=== PATIENT | male | born 1945 | race Caucasian/White ===

== ENCOUNTER 2018-02-22 11:21 | Outpatient (RCR) | payer MEDICARE, BC, SELFPAY | END 2018-03-08 23:59 | disposition home or self-care (01) | LOC: CR 11:21 | PROVIDERS: PCP Family Medicine; Visit Provider Family Medicine | DX: I25.2 Old myocardial infarction (principal); I25.10 Atherosclerotic heart disease of native coronary artery without angina pectoris; Z51.89 Encounter for other specified aftercare ==

== ENCOUNTER 2018-04-03 11:16 | Outpatient (RCR) | payer MEDICARE, BC, SELFPAY | END 2018-04-07 23:59 | disposition home or self-care (01) | LOC: CR 11:16 | PROVIDERS: PCP Family Medicine; Visit Provider Family Medicine | DX: I25.2 Old myocardial infarction (principal); I25.10 Atherosclerotic heart disease of native coronary artery without angina pectoris; Z51.89 Encounter for other specified aftercare | CPT/HCPCS: S9472 ==

== ENCOUNTER 2018-04-20 11:14 | Emergency (ER) | payer MEDICARE, BC, SELFPAY ==
[2018-04-20 11:17] VITALS: BP 123/60; PULSE 47; RESP 16; TEMP 37; O2SAT 99
--- NOTE | 2018-04-20 11:23 | W.ED.GENAD ---
Discharge Plan Disposition Patient Disposition: HOME Condition: Good Discharge Details Chief Complaint: Vascular Clinical Impression: Traumatic hematoma of left hand Primary Care Provider: Jon Ch ED Provider: Johnnie Khanna Home Meds and New Rx's Prescriptions: Continue hydrocortisone acetate [Anusol-HC] 25 MG suppository 25 mg RC BID Qty: 20 RF: 1 aspirin [Aspir-81] 81 MG tablet,delayed release (DR/EC) 1 tab PO DAILY RF: 0 clopidogrel [Plavix] 75 MG tablet 1 tab PO DAILY Qty: 90 RF: 4 atorvastatin 40 MG tablet 40 mg PO DAILY Qty: 90 RF: 4 blood-glucose meter [OneTouch Ultra2] 1 EACH kit 1 ea Miscellaneous DAILY Qty: 1 RF: 0 lisinopril 20 MG tablet 20 mg PO DAILY RF: 0 nitroglycerin [Nitrostat] 0.4 MG tablet, sublingual 1 tab Sublingual PRN Qty: 25 RF: 4 famotidine 20 MG tablet 20 mg PO DAILY Qty: 180 RF: 4 diltiazem HCl [Taztia XT] 120 MG capsule,extended release 24 hr 120 mg PO DAILY Qty: 90 RF: 3 blood sugar diagnostic [OneTouch Ultra Test] 1 EACH strip 1 strip Miscellaneous DAILY Qty: 100 RF: 3 sitagliptin [Januvia] 50 MG tablet 50 mg PO DAILY Qty: 30 RF: 2 isosorbide mononitrate 30 MG tablet extended release 24 hr 30 mg PO DAILY RF: 0 magnesium oxide 400 MG capsule 400 mg PO DAILY RF: 0 lancets [OneTouch Delica Lancets] 1 EACH misc 1 ea Miscellaneous BID Qty: 100 RF: 5 glipizide 10 MG tablet 10 mg PO BID Qty: 180 RF: 4 metformin 750 mg tablet extended release 24 hr 750 mg PO BID Qty: 180 RF: 3 Discharge Instructions Instructions: Contusion in Adults (ED) Discharge Data Discharge Physician: Johnnie Khanna Medical Decision Making patient on asa and plavix comes in with hematoma of left hand. He was setting up generators this AM and accidentally hit left posterior hand. Denies any pain or other injuries, had bruising and swelling so came here. Given lack of any pain even on palpation doubt fx and do not feel xray indicated. Advised to wrap it with dat bandage and should resolve in a few weeks. His Hr is in the 50's on my exam but sates this is chronic for him and is asymptomatic in terms of chest pain, sob, weakness or lightheadedness/dizziness so do not feel w/u for this indicated Differential Diagnosis hematoma, contusion HPI General Mode of arrival: ambulatory. Date/Time Provider Initiated Documentation: 04/20/18 11:22. Limitations to Documentation: no limitations. Information obtained by: patient. History of Present Illness 73 year old M presents to the emergency department with the chief complaint of left posterior hand bruising, described as mild and moderate, with intensity rated at 1. No relieving factors improve symptom(s), No exacerbating factors reported . Patient notes no other symptoms.. Patient did receive the following treatments prior to arrival, none Related Data Home Medications Medication Instructions Recorded Confirmed hydrocortisone acetate [Anusol-HC] 25 mg RC BID #20 supp 06/03/13 aspirin [Aspir-81] 1 tab PO DAILY 09/26/13 12/17/17 clopidogrel [Plavix] 1 tab PO DAILY #90 tab 12/18/13 atorvastatin 40 mg PO DAILY #90 tab-cap 01/15/14 blood-glucose meter [OneTouch #1 kit 08/25/14 Ultra2] lisinopril 20 mg PO DAILY 04/23/15 12/17/17 diltiazem HCl [Taztia XT] 120 mg PO DAILY #90 tab-cap 03/23/17 famotidine 20 mg PO DAILY #180 tab-cap 03/23/17 nitroglycerin [Nitrostat] 1 tab SUBLINGUAL PRN #25 tab 03/23/17 blood sugar diagnostic [OneTouch #100 strip 07/12/17 Ultra Test] sitagliptin [Januvia] 50 mg PO DAILY #30 tab-cap 08/01/17 isosorbide mononitrate 30 mg PO DAILY tab-cap 09/11/17 12/17/17 magnesium oxide 400 mg PO DAILY 11/16/17 12/17/17 lancets [OneTouch Delica Lancets] #100 ea 11/21/17 glipizide 10 mg PO BID #180 tab-cap 01/30/18 metformin ER 750 mg 750 mg PO BID #180 tab-cap 04/09/18 tablet,extended release 24 hr Previous Rx's Medication Instructions Recorded diltiazem HCl [Taztia XT] 120 mg PO DAILY #90 tab-cap 03/23/17 famotidine 20 mg PO DAILY #180 tab-cap 03/23/17 nitroglycerin [Nitrostat] 1 tab SUBLINGUAL PRN #25 tab 03/23/17 blood sugar diagnostic [OneTouch #100 strip 07/12/17 Ultra Test] sitagliptin [Januvia] 50 mg PO DAILY #30 tab-cap 08/01/17 lancets [OneTouch Delica Lancets] #100 ea 11/21/17 glipizide 10 mg PO BID #180 tab-cap 01/30/18 metformin ER 750 mg 750 mg PO BID #180 tab-cap 04/09/18 tablet,extended release 24 hr Allergies Allergy/AdvReac Type Severity Reaction Status Date / Time No Known Allergies Allergy Unverified 03/05/18 08:16 General Stated Complaint: Vascular HELIO: 5 Review of Systems Review of Systems All systems reviewed & are unremarkable except as noted in HPI and below Constitutional Denies chills, Denies fever(s) and Denies weakness ENT Denies change in voice Cardiovascular Denies chest pain and Denies dyspnea Respiratory Denies dyspnea Gastrointestinal Denies abdominal pain, Denies nausea and Denies vomiting Genitourinary Denies dysuria Musculoskeletal Denies joint swelling Integumentary/Breasts Denies rash Neurologic Denies weakness Psychiatric Denies depression Allergic/Immunologic Reports urticaria [facility] Medical History Anxiety 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 DM (diabetes mellitus screen) Essential hypertension Gout Heart murmur History of tobacco use Tic disorder Social History Smoking/Tobacco Use Status: Former Tobacco Use Surgical History Angioplasty (~2008) LEFT HEART CARDIAC CATH PROCEDURES Stent placement Exam Const General: no acute distress Orientation: alert HENMT Head: normal to inspection Ears: external ears normal General nose exam: external nose normal Mouth: moist mucous membranes Eyes General: appearance normal, both eyes and all related structures Neck Neck: normal visual inspection Resp Effort & Inspection: normal respiratory effort and able to speak in complete sentences Cardio Rate: regular rate Skin General skin exam: no rashes or lesions noted Neuro General: alert and oriented x3 Extrem General: full ROM and other (2cm hematoma of left posterior hand, no pain even on palpation, full rom of the hand and wrist) Psych Mental Status: mental status grossly normal Course Vital Signs Temperature 37.0 C 04/20/18 11:17 Pulse 47 L 04/20/18 11:17 Respiratory Rate 16 04/20/18 11:17 Blood Pressure 123/60 04/20/18 11:17 Pulse Oximetry 99 04/20/18 11:17 Temperature 37.0 C 04/20/18 11:17 Temperature Source Temporal Artery Scan 04/20/18 11:17 Pulse 47 L 04/20/18 11:17 Respiratory Rate 16 04/20/18 11:17 Respiratory Effort 04/20/18 11:20 Blood Pressure 123/60 04/20/18 11:17 Blood Pressure Position Sitting 04/20/18 11:17 Pulse Oximetry 99 04/20/18 11:17 Oxygen Delivery Method Room Air 04/20/18 11:17 Oxygen Flow Rate 0 04/20/18 11:17 Pain Level 0 04/20/18 11:19
== END 2018-04-20 11:42 | disposition home or self-care (01) ==
LOC: ER 11:41
PROVIDERS: Emergency Provider Emergency Medicine; PCP Family Medicine
DX: S60.222A Contusion of left hand, initial encounter (principal); W22.8XXA Striking against or struck by other objects, initial encounter; Z79.01 Long term (current) use of anticoagulants
CPT/HCPCS: 99283

== ENCOUNTER 2018-05-08 07:00 | Outpatient (RCR) | payer MEDICARE, BC, SELFPAY | END 2018-05-08 23:59 | disposition home or self-care (01) | LOC: CR 07:00 | PROVIDERS: PCP Family Medicine; Visit Provider Family Medicine | DX: I25.2 Old myocardial infarction (principal); I25.10 Atherosclerotic heart disease of native coronary artery without angina pectoris; Z51.89 Encounter for other specified aftercare | CPT/HCPCS: S9472 ==

== ENCOUNTER 2018-05-29 01:38 | Outpatient (CLI) | payer MEDICARE, BC, SELFPAY ==
[2018-05-29 08:22] LABS: Hemoglobin A1C 6.5 % (4.5-6.2)
== END 2018-05-29 01:58 ==
PROVIDERS: PCP Family Medicine; Visit Provider Family Medicine
DX: E11.9 Type 2 diabetes mellitus without complications (principal)
CPT/HCPCS: 36415; 83036

== ENCOUNTER 2018-06-03 14:22 | Outpatient (RCR) | payer MEDICARE, BC, SELFPAY | END 2018-06-07 23:59 | disposition home or self-care (01) | LOC: CR 14:22 | PROVIDERS: PCP Family Medicine; Visit Provider Family Medicine | DX: I25.2 Old myocardial infarction (principal); I25.10 Atherosclerotic heart disease of native coronary artery without angina pectoris; Z51.89 Encounter for other specified aftercare | CPT/HCPCS: S9472 ==

== ENCOUNTER 2018-06-21 14:42 | Outpatient (RCR) | payer MEDICARE, BC, SELFPAY | END 2018-07-08 23:59 | disposition home or self-care (01) | LOC: CR 14:42 | PROVIDERS: PCP Family Medicine; Visit Provider Family Medicine | DX: I25.2 Old myocardial infarction (principal); I25.10 Atherosclerotic heart disease of native coronary artery without angina pectoris; Z51.89 Encounter for other specified aftercare | CPT/HCPCS: S9472 ==

== ENCOUNTER 2018-08-05 11:38 | Outpatient (RCR) | payer SELFPAY ==
--- NOTE | 2018-07-26 11:36 | PR3E_ITS ---
73 year old male who graduated Cardiac Rehabilitation Phase 2 on 06/21/18 and decided to transition to the maintenance phase, 3 days per week. PMH: PCI/ stent 02/13/18, NSTEMI 09/21/17, CABG 04/16/13, unstable angina, PCI 08/21/08, PCI 01/11, PCI 2000, ASCVD, DM, HTN, HLD, Gout First day of exercise: 07/12/18: BP at rest 154/76, HR rest 84 bpm. Patient completed 30 minutes of exercise: NuStep 10 minutes, UBE 10 minutes, and treadmill 10 minutes. HR w/ exercise ranged 87-96 bpm. VALERIE RPE scores 10-11. Tolerated exercise regimen without any adverse signs or symptoms. No concerns at this time, will continue to progress as tolerated.
== END 2018-08-08 23:59 | disposition home or self-care (01) ==
LOC: CR 11:38
PROVIDERS: PCP Family Medicine; Visit Provider Family Medicine
DX: I25.2 Old myocardial infarction (principal); I25.10 Atherosclerotic heart disease of native coronary artery without angina pectoris; Z51.89 Encounter for other specified aftercare
CPT/HCPCS: S9472

== ENCOUNTER 2018-09-04 07:00 | Outpatient (RCR) | payer SELFPAY ==
--- NOTE | 2018-09-04 11:53 | PR3E_ITS ---
73 year old male who graduated Cardiac Rehabilitation Phase 2 s/p DESx1 02/13/18, then transitioned to the maintenance phase, 3 days per week on 07/12/18, and has now decided to stop the cardiac rehab maintenance phase after 2 months of regular attendance. Last day of exercise: 08/30/18: Resting HR 59, BP 154/85; NuStep 10 minutes and UBE 10 minutes; HR with exercise 74-78bpm, VALERIE RPE scores 11. Tolerated exercise regimen without any adverse signs or symptoms. Patient reports that he will continue exercise at home using treadmill, walking outdoors as weather improves and chores.
== END 2018-09-05 23:59 | disposition home or self-care (01) ==
LOC: CR 07:00
PROVIDERS: PCP Family Medicine; Visit Provider Family Medicine
DX: I25.2 Old myocardial infarction (principal); I25.10 Atherosclerotic heart disease of native coronary artery without angina pectoris; Z51.89 Encounter for other specified aftercare
CPT/HCPCS: S9472

== ENCOUNTER 2018-11-22 02:40 | Outpatient (CLI) | payer MEDICARE, BC, SELFPAY ==
[2018-11-22 10:59] LABS: CREATININE 1.02 mg/dL (0.70-1.30); Cholesterol 118 mg/dL (50-200); HDL Cholesterol 44 mg/dL (40-60); LDL CHOLESTEROL 62 mg/dL (<100); Magnesium 1.4 mg/dL (1.8-2.4); Triglyceride 60 mg/dL (30-150)
== END 2018-11-22 03:00 ==
PROVIDERS: PCP Family Medicine; Visit Provider Family Medicine
DX: E78.5 Hyperlipidemia, unspecified (principal); R79.0 Abnormal level of blood mineral; E11.9 Type 2 diabetes mellitus without complications
CPT/HCPCS: 36415; 80061; 83721; 82565; 83735; 84132

== ENCOUNTER 2018-12-09 08:40 | Outpatient (CLI) | payer MEDICARE, BC, SELFPAY ==
[2018-12-09 10:58] LABS: Hemoglobin A1C 7.2 % (4.5-6.2)
== END 2018-12-09 09:00 ==
PROVIDERS: PCP Family Medicine; Visit Provider Family Medicine
DX: E11.9 Type 2 diabetes mellitus without complications (principal)
CPT/HCPCS: 36415; 83036

== ENCOUNTER 2019-03-06 12:29 | Emergency (ER) | payer MEDICARE, BC, SELFPAY ==
[2019-03-06] VITALS (37 sets, daily range): BP systolic 102–128; BP diastolic 56–71; PULSE 43–63; RESP 7–29; TEMP 36.5; O2SAT 94–99
[2019-03-06 13:11] LABS: Abs Immature Grans 0.01 k/cumm (0.0-0.09); Absolute Basophil Count 0.01 k/cumm (0.0-0.2); Absolute Eosinophil Count 0.17 k/cumm (0.0-0.7); Absolute Lymphocyte Count 1.16 k/cumm (1.2-3.4); Absolute Monocyte Count 0.57 k/cumm (0.11-0.7); Absolute Neutrophil Count 4.49 k/cumm (1.2-6.7); Basophils % 0.2; Eosinophils % 2.7; HGB 12.3 g/dL (13.5-17.5); Immature Grans % 0.2; Lymphocytes % 18.1; Mean Corp. HGB Concentration 34.2 g/dL (32.0-36.0); Mean Corpuscular Hemoglobin 29.8 pg (27.0-33.0); Mean Corpuscular Volume 87.2 fL (80-95); Mean Platelet Volume 9.4 fL (8.0-11.0); Monocytes % 8.9; Neutrophils % 69.9; Platelet Count 269 x1000/uL (130-400); RBC 4.13 m/cumm (4.50-6.00); RBC Distribution Width 13.3 % (11.8-14.1); White Blood Cell Count 6.41 k/cumm (4.4-10.8)
--- NOTE | 2019-03-06 13:17 | DI.RAD_ITS ---
SYMPTOM/DIAGNOSIS: SUBSTERNAL CHEST PAIN PA AND LATERAL CHEST: Comparison is made with 11/05/16. Heart size and pulmonary vasculature are stable and within normal limits. There are sternal wires in place. There is blunting of the right costophrenic angle, likely reflecting scarring. No effusions, infiltrates or pneumothoraces are identified. The lungs appear slightly hyperinflated suggesting underlying COPD. IMPRESSION: No acute pulmonary process.
[2019-03-06 13:34] LABS: ALT 31 U/L (16-63); AST 15 U/L (15-37); Albumin 3.7 g/dL (3.4-5.0); Alkaline Phosphatase 76 U/L (46-116); Anion Gap 9.5 mmol/L (3-11); BUN 20 mg/dL (7-18); Bilirubin, Total 0.4 mg/dL (0.2-1.0); CO2 25.5 mmol/L (21.0-32.0); CREATININE 1.13 mg/dL (0.70-1.30); Calcium 8.9 mg/dL (8.5-10.1); Chloride 102 mmol/L (98-107); Glucose 162 mg/dL (70-100); Magnesium 1.6 mg/dL (1.8-2.4); Potassium 4.7 mmol/L (3.5-5.1); Sodium 137 mmol/L (136-145); Total Protein 7.3 g/dL (6.4-8.2); Troponin I 0.05 ng/mL (0.00-0.06)
--- NOTE | 2019-03-06 15:44 | W.ED.GENAD ---
Discharge Plan Disposition Patient Disposition: HOME Condition: Stable Discharge Details Chief Complaint: Chest Pain Clinical Impression: Angina of effort Primary Care Provider: Jon Ch ED Provider: Jeremy Rodriguez Home Meds and New Rx's Prescriptions: Continued Judy 128 2 % drops 1 drp ophthalmic (eye) QID RF: 0 (DME) FastDueTouch Ultra Test strip 1 strip Miscellaneous DAILY Qty: 100 RF: 3 Januvia 50 mg tablet 50 mg PO DAILY Qty: 30 RF: 2 magnesium oxide 400 mg capsule 400 mg PO BID RF: 0 isosorbide mononitrate 30 mg tablet extended release 24 hr 60 mg PO DAILY RF: 0 triamcinolone acetonide 0.1 % cream 1 applic TP BID RF: 0 aspirin [Aspir-81] 81 MG tablet,delayed release (DR/EC) 1 tab PO DAILY RF: 0 clopidogrel [Plavix] 75 MG tablet 1 tab PO DAILY Qty: 90 RF: 4 atorvastatin 40 MG tablet 40 mg PO DAILY Qty: 90 RF: 4 (DME) blood-glucose meter [Stratus5uch Ultra2 Meter] 1 EACH kit 1 ea Miscellaneous DAILY Qty: 1 RF: 0 lisinopril 20 MG tablet 20 mg PO DAILY RF: 0 famotidine 20 MG tablet 20 mg PO DAILY Qty: 180 RF: 4 diltiazem HCl [Taztia XT] 120 MG capsule,extended release 24 hr 120 mg PO DAILY Qty: 90 RF: 3 (DME) lancets [FastDueTouch Delica Lancets] 1 EACH misc 1 ea Miscellaneous BID Qty: 100 RF: 5 metformin 750 mg tablet extended release 24 hr 750 mg PO BID Qty: 180 RF: 3 nitroglycerin [Nitrostat] 0.4 mg tablet, sublingual 0.4 mg Sublingual PRN MDD 3 tabs Qty: 25 RF: 1 glipizide 10 mg tablet 5 mg PO BID Qty: 180 RF: 4 Discharge Instructions Instructions: Angina (ED) Additional Instructions: Your cardiology office will call you tomorrow for an appointment for close follow-up. For now, do not do any strenuous exertion, you may take 120 mg of your isosorbide daily as long as your blood pressure is greater than 120 systolic (top number). If you take this much and you feel lightheaded or dizzy, he will need to decrease her dose back to 60 mg. If your symptoms return at rest, meaning you are not walking or doing any heavy exertion and you are getting chest pain, you will need to come right back to the emergency department. If you develop any shortness of breath, or additional symptoms you should return promptly to the ED. Medical Decision Making Chest x-ray unremarkable. No acute EKG changes. Troponins are negative x2. [facility] was consulted, Muriel Carvajal contacted his bending machine operator, reviewed EKGs, and is setting up outpatient follow-up this week for patient. Recommend increasing nitro to 120 mg assuming blood pressures can tolerate it. Patient is agreeable to this as he states he is unwilling to be admitted regardless. He will return if any pain progresses, specifically any pain at rest or any pain with minimal exertion. He is able to ambulate across the parking lot, and out of his bathroom here without chest pain or symptoms. He understands severity of his disease and that he will need very close follow-up. STEPHANY Bryant is a 73-year-old male with past medical history significant for hypertension, coronary artery disease, CABG, multiple cardiac stents most recently 1 year ago. He presents today for evaluation of substernal chest pain with exertion, specifically when he walks in his driveway and then returns. Resolves when he takes nitro and sits down. He has had similar symptoms in the past multiple times leading up to his stents. Most recent stent was one year ago. 6 months ago he started having chest pain and his bending machine operator Dr. Banerjee at [facility] increase his dose of nitro. This was successful up until 2 weeks ago when he started having this current chest pain. It is not worse in the past 2 weeks. He does not have pain at rest. He does not associated symptoms with it. General Date/Time Provider Initiated Documentation: 03/06/19 12:46. Related Data Home Medications Medication Instructions Recorded Confirmed aspirin [Aspir-81] 1 tab PO DAILY 09/26/13 03/06/19 clopidogrel [Plavix] 1 tab PO DAILY #90 tab 12/18/13 03/06/19 atorvastatin 40 mg PO DAILY #90 tab-cap 01/15/14 03/06/19 blood-glucose meter [OneTouch #1 kit 08/25/14 11/28/18 Ultra2 Meter] lisinopril 20 mg PO DAILY 04/23/15 03/06/19 diltiazem HCl [Taztia XT] 120 mg PO DAILY #90 tab-cap 03/23/17 03/06/19 famotidine 20 mg PO DAILY #180 tab-cap 03/23/17 03/06/19 lancets [OneTouch Delica Lancets] #100 ea 11/21/17 11/28/18 metformin 750 mg tablet,extended 750 mg PO BID #180 tab-cap 04/09/18 03/06/19 release 24 hr sodium chloride 2 % eye drops 1 drp OPHTHALMIC (EYE) QID ml 05/15/18 03/06/19 nitroglycerin 0.4 mg sublingual 0.4 mg SUBLINGUAL PRN #25 tab MDD 06/25/18 03/06/19 tablet 3 tabs blood sugar diagnostic #100 strip 08/27/18 11/28/18 sitagliptin 50 mg tablet 50 mg PO DAILY #30 tab-cap 08/27/18 03/06/19 triamcinolone acetonide 0.1 % 1 applic TP BID gm 10/18/18 03/06/19 topical cream glipizide 10 mg tablet 5 mg PO BID #180 tab-cap 10/25/18 03/06/19 isosorbide mononitrate 30 mg 60 mg PO DAILY tab-cap 11/28/18 03/06/19 tablet,extended release 24 hr magnesium oxide 400 mg PO BID cap 11/28/18 03/06/19 Previous Rx's Medication Instructions Recorded diltiazem HCl [Taztia XT] 120 mg PO DAILY #90 tab-cap 03/23/17 famotidine 20 mg PO DAILY #180 tab-cap 03/23/17 lancets [OneTouch Delica Lancets] #100 ea 11/21/17 metformin 750 mg tablet,extended 750 mg PO BID #180 tab-cap 04/09/18 release 24 hr nitroglycerin 0.4 mg sublingual 0.4 mg SUBLINGUAL PRN #25 tab MDD 06/25/18 tablet 3 tabs blood sugar diagnostic #100 strip 08/27/18 sitagliptin 50 mg tablet 50 mg PO DAILY #30 tab-cap 08/27/18 glipizide 10 mg tablet 5 mg PO BID #180 tab-cap 10/25/18 Allergies Allergy/AdvReac Type Severity Reaction Status Date / Time No Known Allergies Allergy Unverified 08/29/19 12:39 General Stated Complaint: Chest Pain HELIO: 2 Review of Systems Constitutional Denies chills, Denies fatigue, Denies fever(s) and Denies lethargy Eyes Denies loss of vision ENT Denies nasal congestion and Denies sore throat Cardiovascular Denies dyspnea Respiratory Denies cough and Denies dyspnea Gastrointestinal Denies abdominal pain, Denies nausea and Denies vomiting Musculoskeletal Denies back pain, Denies muscle weakness and Denies numbness Integumentary/Breasts Denies rash Neurologic Denies focal weakness, Denies loss of vision and Denies numbness Endocrine Denies fatigue Hematologic/Lymphatic Denies easy bruising [facility] Surgical History (Updated 11/28/18 @ 05:46 by Kenrick Spaulding) Angioplasty (~2008) LAD LEFT HEART CARDIAC CATH LEFT HEART CARDIAC CATH, 1993 >40% LAD RT/LEFT HEART CARD CATH, 2000 RCA stent placed LEFT HEART CARDIAC CATH, 2001 PROCEDURES 2 vessel coronary artery bypass 2013 Stent placement 2000-VASCULAR/RCA 09/21/17-[facility] MID RCA (DISTAL EDGE OF PREVIOUS STENT) 02/2018- [facility] STENT MID RCA Social History Smoking/Tobacco Use Status: Former Tobacco Use Drug use: Never Do you feel safe in your relationship?: Yes Exam Const General: cooperative, healthy appearing and no acute distress [facility] Head: normal to inspection Ears: hearing grossly normal bilaterally Eyes EOM: EOM intact bilaterally Neck Neck: normal visual inspection Resp Effort & Inspection: normal respiratory effort Auscultation: clear to auscultation bilaterally Cardio Rate: regular rate Rhythm: regular rhythm Heart Sounds: no murmurs GI Palpation: soft and nontender Skin General skin exam: no rashes or lesions noted Neuro General: alert, awake and oriented x3 Speech: speech normal Gait: normal gait Extrem General: normal to inspection Course Vital Signs Temperature 36.5 C 03/06/19 12:36 Pulse 50 L 03/06/19 12:36 Respiratory Rate 16 03/06/19 12:36 Blood Pressure 122/60 03/06/19 12:36 Pulse Oximetry 99 03/06/19 12:36 Temperature 36.5 C 03/06/19 12:36 Temperature Source Skin 03/06/19 12:36 Pulse 48 L 03/06/19 14:00 Pulse 47 L 03/06/19 14:10 Respiratory Rate 13 03/06/19 14:10 Respiratory Effort Non-Labored 03/06/19 12:54 Respiratory Depth Normal 03/06/19 12:54 Respiratory Pattern Normal 03/06/19 12:54 Blood Pressure 111/56 L 03/06/19 14:00 Blood Pressure Mean 70 03/06/19 14:00 Blood Pressure Position Sitting 03/06/19 12:36 Pulse Oximetry 97 03/06/19 14:10 Oxygen Delivery Method Room Air 03/06/19 12:36 Oxygen Flow Rate 0 03/06/19 12:36 Pain Level 5 03/06/19 12:36 Lab/Test Results Lab/Test Results: Laboratory Tests Range/Units 03/06/19 03/06/19 12:50 12:50 WBC (4.4-10.8) k/cumm 6.41 RBC (4.50-6.00) m/cumm 4.13 L Hgb (13.5-17.5) g/dL 12.3 L Hct (40.0-50.0) % 36.0 L MCV (80-95) fL 87.2 MCH (27.0-33.0) pg 29.8 MCHC (32.0-36.0) g/dL 34.2 RDW (11.8-14.1) % 13.3 Plt Count (130-400) x1000/uL 269 MPV (8.0-11.0) fL 9.4 Immature Gran % 0.2 Neutrophils % 69.9 Lymphocytes % 18.1 Monocytes % 8.9 Eosinophils % 2.7 Basophils % 0.2 Absolute Neutrophils (1.2-6.7) k/cumm 4.49 Absolute Lymphocytes (1.2-3.4) k/cumm 1.16 L Absolute Monocytes (0.11-0.7) k/cumm 0.57 Absolute Eosinophils (0.0-0.7) k/cumm 0.17 Absolute Basophils (0.0-0.2) k/cumm 0.01 Sodium (136-145) mmol/L 137 Potassium (3.5-5.1) mmol/L 4.7 Chloride (98-107) mmol/L 102 Carbon Dioxide (21.0-32.0) mmol/L 25.5 Anion Gap (3-11) mmol/L 9.5 BUN (7-18) mg/dL 20 H Creatinine (0.70-1.30) mg/dL 1.13 Estimated GFR/1.73 m2 (mL/min/1.73m2) >= 60.00 Glucose (70-100) mg/dL 162 H Calcium (8.5-10.1) mg/dL 8.9 Magnesium (1.8-2.4) mg/dL 1.6 L Total Bilirubin (0.2-1.0) mg/dL 0.4 AST (15-37) U/L 15 ALT (16-63) U/L 31 Alkaline Phosphatase (46-116) U/L 76 Troponin I (0.00-0.06) ng/mL 0.05 Total Protein (6.4-8.2) g/dL 7.3 Albumin (3.4-5.0) g/dL 3.7
[2019-03-06 16:22] LABS: Troponin I < 0.05 ng/mL (0.00-0.06)
== END 2019-03-06 16:53 | disposition home or self-care (01) ==
PROVIDERS: Emergency Provider Physician Assistant Medical; PCP Family Medicine
DX: I25.118 Atherosclerotic heart disease of native coronary artery with other forms of angina pectoris (principal); I10 Essential (primary) hypertension; Z95.5 Presence of coronary angioplasty implant and graft; E11.9 Type 2 diabetes mellitus without complications; Z95.1 Presence of aortocoronary bypass graft; Z79.84 Long term (current) use of oral hypoglycemic drugs
CPT/HCPCS: 36415; 80053; 93005; 99285; 71046; 83735; 84484; 85025; 93010

== ENCOUNTER 2019-05-30 12:26 | Outpatient (REF) | payer MEDICARE, BC, SELFPAY ==
[2019-05-30 14:11] LABS: Bilirubin Negative (Negative); Blood Trace-intact (Negative); Clarity Clear (Clear); Glucose 250 mg/dL (Negative); Ketones Negative (Negative); Leukocyte Esterase Trace (Negative); Nitrite Negative (Negative); Specific Gravity <= 1.005 (1.005-1.025); Urobilinogen 0.2 EU/dL (Up TO 0.2)
[2019-05-30 14:20] LABS: Bacteria Few HPF (Negative); Crystals Negative HPF (Negative); Epithelial Cells Rare HPF (Negative); Mucus Negative (Negative); RBC 0-2 HPF (0-2)
[2019-05-30 14:21] LABS: C & S Indicated? C&S Done As Ordered; Casts Negative LPF (Negative)
== END 2019-05-30 12:46 ==
LOC: LBN 12:26
PROVIDERS: PCP Family Medicine; Visit Provider Emergency Medicine
DX: N39.0 Urinary tract infection, site not specified (principal); M54.5 Low back pain
CPT/HCPCS: 87077; 81003; 81015; 87086

== ENCOUNTER 2019-07-29 09:20 | Outpatient (REF) | payer MEDICARE, BC, SELFPAY | END 2019-07-29 09:40 | LOC: LBN 09:20 | PROVIDERS: PCP Family Medicine; Visit Provider Family Medicine | DX: R30.0 Dysuria (principal) | CPT/HCPCS: 87077; 87086; 87186 ==

== ENCOUNTER 2019-07-31 09:38 | Outpatient (RCR) | payer MEDICARE, BC, SELFPAY | END 2019-08-08 23:59 | disposition home or self-care (01) | LOC: CR 09:38 | PROVIDERS: PCP Family Medicine; Visit Provider Family Medicine | DX: I20.0 Unstable angina (principal); Z98.61 Coronary angioplasty status; Z51.89 Encounter for other specified aftercare ==

== ENCOUNTER 2019-09-05 13:41 | Outpatient (RCR) | payer MEDICARE, BC, SELFPAY | END 2019-09-06 23:59 | disposition home or self-care (01) | LOC: CR 13:41 | PROVIDERS: PCP Family Medicine; Visit Provider Family Medicine | DX: Z95.5 Presence of coronary angioplasty implant and graft (principal); I20.0 Unstable angina; Z51.89 Encounter for other specified aftercare | CPT/HCPCS: S9472 ==

== ENCOUNTER 2019-09-15 08:00 | Outpatient (RCR) | payer MEDICARE, BC, SELFPAY | END 2019-10-07 23:59 | disposition home or self-care (01) | LOC: CR 08:00 | PROVIDERS: PCP Family Medicine; Visit Provider Family Medicine | DX: Z95.5 Presence of coronary angioplasty implant and graft (principal); I20.0 Unstable angina; Z51.89 Encounter for other specified aftercare | CPT/HCPCS: S9472 ==

== ENCOUNTER 2020-10-21 02:57 | Outpatient (CLI) | payer MEDICARE, BC, SELFPAY ==
[2020-10-21 12:22] LABS: Abs Immature Grans 0.02 10^3/uL (0.0-0.06); Absolute Basophil Count 0.04 10^3/uL (0.0-0.2); Absolute Eosinophil Count 0.36 10^3/uL (0.0-0.7); Absolute Lymphocyte Count 1.31 10^3/uL (1.2-3.4); Absolute Monocyte Count 0.62 10^3/uL (0.1-0.8); Absolute Neutrophil Count 3.97 10^3/uL (1.2-6.7); Basophils % 0.6; Eosinophils % 5.7; HCT 31.9 % (40.0-50.0); HGB 9.2 g/dL (13.5-17.5); Immature Grans % 0.3; Lymphocytes % 20.7; MCH 22.2 pg (27.0-33.0); MCHC 28.8 % (32.0-36.0); MCV 77.1 fL (80-95); MPV 10.1 fL (8.0-11.0); Monocytes % 9.8; Neutrophils % 62.9; Nucleated RBC 0 %; Platelet Count 288 10^3/uL (130-400); RBC 4.14 10^6/uL (4.36-5.78); RDW 16.3 % (11.8-14.1); RDW-SD 45.3 fL; WBC 6.32 10^3/uL (4.4-10.8)
[2020-10-21 12:37] LABS: Anion Gap 10.2 mmol/L (3-11); BUN 22 mg/dL (7-18); CO2 25.8 mmol/L (21.0-32.0); CREATININE 1.1 mg/dL (0.70-1.30); Calcium 9.8 mg/dL (8.5-10.1); Chloride 103 mmol/L (98-107); Glucose 197 mg/dL (74-106); Potassium 4.6 mmol/L (3.5-5.1); Sodium 139 mmol/L (136-145)
[2020-10-21 12:38] LABS: Hemoglobin A1C 7.4 % (<5.7)
[2020-10-22 16:08] LABS: Iron 31 ug/dL (65-175); Total Iron Binding Capacity 381 ug/dL (250-450); Transferrin Sat 8 % (20-55)
[2020-10-22 16:35] LABS: Ferritin 7 ng/mL (26-388); Vitamin B12 237 pg/mL (193-986)
== END 2020-10-21 02:58 | disposition home or self-care (01) ==
LOC: LOS 02:57
PROVIDERS: PCP Family Medicine; Visit Provider Family Medicine
DX: E87.1 Hypo-osmolality and hyponatremia (principal); R73.9 Hyperglycemia, unspecified; I25.10 Atherosclerotic heart disease of native coronary artery without angina pectoris; D64.9 Anemia, unspecified
CPT/HCPCS: 36415; 80048; 82607; 82728; 83036; 83540; 83550; 85025

== ENCOUNTER 2020-12-07 14:08 | Outpatient (RCR) | payer MEDICARE, BC, SELFPAY | END 2021-01-05 23:59 | disposition home or self-care (01) | LOC: CR 14:08 | PROVIDERS: PCP Family Medicine; Visit Provider Family Medicine ==

== ENCOUNTER 2020-12-16 13:19 | Outpatient (RCR) | payer MEDICARE, BC, SELFPAY | END 2021-01-05 23:59 | disposition home or self-care (01) | LOC: CR 13:19 | PROVIDERS: PCP Family Medicine; Visit Provider Family Medicine ==

== ENCOUNTER 2021-02-03 04:26 | Outpatient (CLI) | payer MEDICARE, BC, SELFPAY ==
[2021-02-03 09:41] LABS: HCT 36.5 % (40.0-50.0); HGB 12.5 g/dL (13.5-17.5); MCH 28.6 pg (27.0-33.0); MCHC 34.2 % (32.0-36.0); MCV 83.5 fL (80-95); MPV 9.4 fL (8.0-11.0); Platelet Count 252 10^3/uL (130-400); RBC 4.37 10^6/uL (4.36-5.78); RDW 15.6 % (11.8-14.1); RDW-SD 47.2 fL; WBC 6.89 10^3/uL (4.4-10.8)
[2021-02-03 09:53] LABS: Hemoglobin A1C 7.7 % (<5.7)
[2021-02-03 10:25] LABS: Iron 74 ug/dL (65-175); Total Iron Binding Capacity 321 ug/dL (250-450); Transferrin Sat 23 % (20-55)
[2021-02-03 10:43] LABS: Ferritin 25 ng/mL (26-388)
== END 2021-02-03 04:27 | disposition home or self-care (01) ==
LOC: LBO 04:26
PROVIDERS: PCP Family Medicine; Visit Provider Family Medicine
DX: D64.9 Anemia, unspecified (principal); R53.83 Other fatigue; R73.9 Hyperglycemia, unspecified
CPT/HCPCS: 36415; 85027; 82728; 83036; 83540; 83550

== ENCOUNTER 2021-04-18 01:01 | Outpatient (CLI) | payer MEDICARE, BC, SELFPAY ==
--- NOTE | 2021-04-18 08:13 | DI.RAD_ITS ---
Exam(s) XR CERVICAL SPINE COMP 4-5V EXAM: XR CERVICAL SPINE COMP 4-5V CLINICAL HISTORY: neck pain/dizziness/headache,R42,M54.2 TECHNIQUE: COMPARISON: CR CERV SP.WITH OBL OR FLEX/EXT from 05/30/2011 FINDINGS: Eight views were obtained. Prevertebral soft tissues appear intact. Calcifications are noted in the posterior longitudinal ligament. The intervertebral disc spaces appear well maintained. There are mild hypertrophic degenerative leon ges involving articular facets and vertebral endplates. No other significant bony abnormality seen. Neural foramina appear well maintained on oblique views. IMPRESSION: Mild degenerative changes of the cervical spine as described above. RADIATION DOSE DELIVERED: Total DLP
== END 2021-04-18 01:21 ==
PROVIDERS: PCP Family Medicine; Visit Provider Family Medicine
DX: M54.2 Cervicalgia (principal); R42 Dizziness and giddiness; M50.30 Other cervical disc degeneration, unspecified cervical region
CPT/HCPCS: 72050

== ENCOUNTER 2021-08-29 14:24 | Inpatient (IN) | payer MEDICARE, BC, SELFPAY ==
[2021-08-29] VITALS (27 sets, daily range): BP systolic 116–156; BP diastolic 42–111; PULSE 56–97; RESP 13–23; TEMP 36.1–36.6; O2SAT 96–100
--- NOTE | 2021-08-29 14:15 | RT.EKG_ITS ---
APPROVED REPORT Exam: Resting ECG Reason for Exam: chest pain Patient Location: E HR:86 bpm ECG Measurements Heart Rate 86 AXIS MT 171 P 48 QRSd 138 QRS -14 QT 385 T 58 QTc 461 Conclusion Sinus rhythm...normal P axis, V-rate 60- 99 Probable left atrial enlargement...P >50mS, <-0.10mV V1 Right bundle branch block...QRSd>120, terminal axis(90,270) sinus rhythm, rbb, non ischemic
--- NOTE | 2021-08-29 14:40 | W.ED.GENAD ---
Discharge Plan Disposition Patient Disposition: STILL A PATIENT Condition: Improving Discharge Details Admit Date/Time: 08/29/21 19:10 Admit Provider: Gallo Willard Attending Provider: Gallo Willard Primary Care Provider: Jon Ch ED Provider: Megan Pelletier Discharge Data Discharge Date/Time-TO BE ENTERED AT DEPARTURE: 08/29/21 19:53 Medical Decision Making <FRANKO Power - Last Filed: 08/30/21 08:17> This is a 76-year-old gentleman, extensive cardiac history, presenting to the ER stating he simply does not feel well, this started yesterday and again today. He reports mild dyspnea with exertion and generalized weakness but denies any chest pain whatsoever. Clinically he appears well, nontoxic and hemodynamically stable. Plan is to give a single dose of aspirin and initiate a cardiac work-up including D-dimer Laboratory values reveal hemoglobin of 9.1 hematocrit 27.1, patient does have known anemia and this is near his baseline. Again he denies dark tarry stools or bright red blood in his stools. Coags are unremarkable, D-dimer is unremarkable at 436, will not pursue CTA of the chest. Electrolytes are normal, creatinine of 1.3 with a GFR of 53.82. His magnesium is 1.6. Will replenish with 1 g IV. His initial troponin is 77. BNP of 145. Urinalysis reveals glucose otherwise unremarkable. Covid negative. Chest x-ray unremarkable. Patient denies any chest pain. There are no ischemic changes on his EKG. Troponin of 77. Given his extensive cardiac history, vague presentation, likely dyspnea with exertion earlier today is a chest pain equivalent. Plan to obtain a repeat troponin to assess if this is trending upward and likely a consultation with cardiology. Either way I do not believe that he should be dispositioned home but the question is whether he requires transfer to [facility] for intervention with cardiology where he is followed or can be safely watched here at our facility. Patient CARE signed out to my colleague FRANKO Pelletier at [id number]. Patient is currently asymptomatic and hemodynamically stable. Awaiting delta troponin, likely cardiology consultation, and disposition. Repeat troponin down trending at 70. Patient remains asymptomatic. Discussed with patient. Consulted with Dr. Levi with [facility] cardiology. He reviewed recent cath note from 6 months ago. He advised that it showed patent graphs but multiple blockages. Reviewed remaining labs. He advised that would not cath the patient at this time. Advised monitoring for now. Advised echo while here. He advised echo from 1yr ago showed EF 55%, no wall motion abnormality. Known prosthetic valve. Medical Records Medical records reviewed: Yes I reviewed the patient's medical records. Imaging Data Radiologic Study: Attestation: I personally reviewed and interpreted this imaging study as follows: Imaging: X-Ray Radiologist's impression: Exam(s) XR CHEST 2V PA LATERAL EXAM: XR CHEST 2V PA LATERAL CLINICAL HISTORY: chest pain. TECHNIQUE: 2D digital imaging was performed. COMPARISON: CR from 03/06/2019 FINDINGS: There has been interval further surgery. Repeat sternotomy and there is now a prosthetic aortic valve in place. Coronary artery stents in left side of the heart are again noted. Heart size is normal. The mediastinum is not widened. Lungs are clear. No infiltrates nor pleural effusions. No pulmonary edema. No pneumothorax IMPRESSION: No acute pulmonary findings. Sternotomy. Prosthetic aortic valve. Coronary artery stents Lab Data Lab results reviewed: Yes I reviewed the patient's lab results. Labs: Laboratory Tests Range/Units 08/29/21 08/29/21 08/29/21 14:45 14:45 14:45 WBC (4.4-10.8) 10^3/uL 8.09 RBC (4.36-5.78) 10^6/uL 2.98 L Hgb (13.5-17.5) g/dL 9.1 L Hct (40.0-50.0) % 27.1 L MCV (80-95) fL 90.9 MCH (27.0-33.0) pg 30.5 MCHC (32.0-36.0) % 33.6 RDW (11.8-14.1) % 13.4 Plt Count (130-400) 10^3/uL 279 MPV (8.0-11.0) fL 9.6 Immature Gran % 0.4 Neutrophils % 78.5 Lymphocytes % 12.4 Monocytes % 7.5 Eosinophils % 1.0 Basophils % 0.2 Nucleated RBC % % 0 Absolute Neutrophils (1.2-6.7) 10^3/uL 6.35 Absolute Lymphocytes (1.2-3.4) 10^3/uL 1.00 L Absolute Monocytes (0.1-0.8) 10^3/uL 0.61 Absolute Eosinophils (0.0-0.7) 10^3/uL 0.08 Absolute Basophils (0.0-0.2) 10^3/uL 0.02 PT (9.3-11.0) sec 9.8 INR (0.9-1.1) 1.0 APTT (21.0-27.5) sec 21.7 D-Dimer (<500) ng/mlFEU 436 Sodium (136-145) mmol/L 137 Potassium (3.5-5.1) mmol/L 4.5 Chloride (98-107) mmol/L 102 Carbon Dioxide (21.0-32.0) mmol/L 22.8 Anion Gap (3-11) mmol/L 12.2 H BUN (7-18) mg/dL 33 H Creatinine (0.70-1.30) mg/dL 1.3 Estimated GFR/1.73 m2 (mL/min/1.73m2) 53.82 Glucose (74-106) mg/dL 275 H Calcium (8.5-10.1) mg/dL 9.2 Magnesium (1.8-2.4) mg/dL 1.6 L Total Bilirubin (0.2-1.0) mg/dL 0.4 AST (15-37) U/L 14 L ALT (16-63) U/L 26 Alkaline Phosphatase (46-116) U/L 81 Troponin I (<or=60) ng/L 77 H* NT-Pro-B Natriuret Pep (<300) pg/mL 145 Total Protein (6.4-8.2) g/dL 7.2 Albumin (3.4-5.0) g/dL 3.9 Urine Color (Yellow) Urine Clarity (Clear) Urine pH (5-8) Ur Specific [place] (1.005-1.025) Urine Protein (Negative) mg/dL Urine Ketones (Negative) mg/dL Urine Blood (Negative) Urine Nitrite (Negative) Urine Bilirubin (Negative) Urine Urobilinogen (Up TO 0.2) EU/dL Ur Leukocyte Esterase (Negative) Urine Glucose (Negative) mg/dL COVID-19 Source SARS-CoV-2 (PCR) (Negative) Range/Units 08/29/21 08/29/21 14:57 15:15 WBC (4.4-10.8) 10^3/uL RBC (4.36-5.78) 10^6/uL Hgb (13.5-17.5) g/dL Hct (40.0-50.0) % MCV (80-95) fL MCH (27.0-33.0) pg MCHC (32.0-36.0) % RDW (11.8-14.1) % Plt Count (130-400) 10^3/uL MPV (8.0-11.0) fL Immature Gran % Neutrophils % Lymphocytes % Monocytes % Eosinophils % Basophils % Nucleated RBC % % Absolute Neutrophils (1.2-6.7) 10^3/uL Absolute Lymphocytes (1.2-3.4) 10^3/uL Absolute Monocytes (0.1-0.8) 10^3/uL Absolute Eosinophils (0.0-0.7) 10^3/uL Absolute Basophils (0.0-0.2) 10^3/uL PT (9.3-11.0) sec INR (0.9-1.1) APTT (21.0-27.5) sec D-Dimer (<500) ng/mlFEU Sodium (136-145) mmol/L Potassium (3.5-5.1) mmol/L Chloride (98-107) mmol/L Carbon Dioxide (21.0-32.0) mmol/L Anion Gap (3-11) mmol/L BUN (7-18) mg/dL Creatinine (0.70-1.30) mg/dL Estimated GFR/1.73 m2 (mL/min/1.73m2) Glucose (74-106) mg/dL Calcium (8.5-10.1) mg/dL Magnesium (1.8-2.4) mg/dL Total Bilirubin (0.2-1.0) mg/dL AST (15-37) U/L ALT (16-63) U/L Alkaline Phosphatase (46-116) U/L Troponin I (<or=60) ng/L NT-Pro-B Natriuret Pep (<300) pg/mL Total Protein (6.4-8.2) g/dL Albumin (3.4-5.0) g/dL Urine Color (Yellow) Yellow Urine Clarity (Clear) Clear Urine pH (5-8) 5.5 Ur Specific [place] (1.005-1.025) 1.025 Urine Protein (Negative) mg/dL Negative Urine Ketones (Negative) mg/dL Negative Urine Blood (Negative) Negative Urine Nitrite (Negative) Negative Urine Bilirubin (Negative) Negative Urine Urobilinogen (Up TO 0.2) EU/dL 0.2 Ur Leukocyte Esterase (Negative) Negative Urine Glucose (Negative) mg/dL 500 H COVID-19 Source Nasal/Nares SARS-CoV-2 (PCR) (Negative) Negative ECG Data Attestation: I personally reviewed and interpreted this ECG (s) as follows: Interpretation: Please see official report by Dr. Flannery, sinus rhythm, ventricular rate of 86, no STEMI. Right bundle branch block <FRANKO Narvaez - Last Filed: 08/31/21 14:08> This is a 76-year-old gentleman, extensive cardiac history, presenting to the ER stating he simply does not feel well, this started yesterday and again today. He reports mild dyspnea with exertion and generalized weakness but denies any chest pain whatsoever. Clinically he appears well, nontoxic and hemodynamically stable. Plan is to give a single dose of aspirin and initiate a cardiac work-up including D-dimer Laboratory values reveal hemoglobin of 9.1 hematocrit 27.1, patient does have known anemia and this is near his baseline. Again he denies dark tarry stools or bright red blood in his stools. Coags are unremarkable, D-dimer is unremarkable at 436, will not pursue CTA of the chest. Electrolytes are normal, creatinine of 1.3 with a GFR of 53.82. His magnesium is 1.6. Will replenish with 1 g IV. His initial troponin is 77. BNP of 145. Urinalysis reveals glucose otherwise unremarkable. Covid negative. Chest x-ray unremarkable. Patient denies any chest pain. There are no ischemic changes on his EKG. Troponin of 77. Given his extensive cardiac history, vague presentation, likely dyspnea with exertion earlier today is a chest pain equivalent. Plan to obtain a repeat troponin to assess if this is trending upward and likely a consultation with cardiology. Either way I do not believe that he should be dispositioned home but the question is whether he requires transfer to [facility] for intervention with cardiology where he is followed or can be safely watched here at our facility. Patient CARE signed out to my colleague FRANKO Pelletier at [phone]. Patient is currently asymptomatic and hemodynamically stable. Awaiting delta troponin, likely cardiology consultation, and disposition. Care trarnsitioned to myself from Keo Sommer PA-C. Han see his initial note reegarding history, presentation and exam. In brief, patient is a pleasant 76 year old male presenting today for not feeling right. Extensive cardiac hx with multiplee stents placed. He took nitro prior to arrival. Has been asymptomatic since being here. Initial ECG normal. Troponin elevated at 70. At the time I assumed care, patient stable, asympatomic. Awaiting repeat troponin and disposition. Repeat troponin down trending at 70. Patient remains asymptomatic. Discussed with patient. Consulted with Dr. Levi with [facility] cardiology. He reviewed recent cath note from 6 months ago. He advised that it showed patent graphs but multiple blockages. Reviewed remaining labs. He advised that would not cath the patient at this time. Advised monitoring for now. Advised echo while here. He advised echo from 1yr ago showed EF 55%, no wall motion abnormality. Known prosthetic valve. Discussed with patitent and . Concerned for NSTEMI. Happy to see that troponin is downtrending, but, particularly given his PMH, feel that admission is appropriate for continued monitoring and echo. Consulted with hospitalist who agrees to admission. HPI <FRANKO Power - Last Filed: 08/30/21 08:17> General Mode of arrival: ambulatory. Date/Time Provider Initiated Documentation: 08/29/21 14:28. Limitations to Documentation: no limitations. Information obtained by: patient. HPI Narrative: This is a 76-year-old gentleman, past medical history of anemia, hypertension, CAD, significant cardiac history including cardiac bypass surgery and multiple stents, presenting to the ER for evaluation stating that he simply does not feel right. He states that he did not feel well yesterday but has a hard time explaining exactly what he was feeling. Today around 12:30 in the afternoon he was outside spraying down his driveway with the hose when he states that he just again did not feel right. He is extremely vague historian and has a hard time expressing himself but the best I can ascertain is mild dyspnea with exertion. Triage note reports that he felt dizzy but he denies any dizziness to me, admits to mild generalized weakness. He denies any chest pain but states he took a nitro because he wondered if it would help him. He took a nitro and it did not really help, states the symptoms are the same, but he does have a mild headache now. States that previously when he had a cardiac event he had more pain than what he experienced today. He denies recent illness or trauma. He denies any visual changes, neck pain, cough, chest pain, abdominal pain, nausea, vomiting, change in bowel or bladder function, numbness, tingling, weakness, swelling in his extremities. He reports that he takes an iron supplement and his stools are always slightly dark but denies any change of his stools, denies black tarry stools or bright red blood in his stool Related Data Home Medications Medication Instructions Recorded Confirmed aspirin 81 mg tablet,delayed 1 tab PO DAILY 09/26/13 08/29/21 release (Aspir-) clopidogrel 75 mg tablet (Plavix) 1 tab PO DAILY #90 tab 12/18/13 08/29/21 blood-glucose meter (ShareMagnet #1 kit 08/25/14 07/27/21 Ultra2 Meter) nitroglycerin 0.4 mg sublingual 0.4 mg SUBLINGUAL PRN #25 tab MDD 06/25/18 08/29/21 tablet (Nitrostat) 3 tabs magnesium oxide 400 mg PO DAILY cap 11/28/18 08/29/21 atorvastatin 80 mg tablet 80 mg PO QHS 07/29/19 08/29/21 lancets 33 gauge (OneTouch Delradha #100 each 06/23/20 07/27/21 Lancets) acetaminophen 500 mg capsule 500 mg PO DAILY PRN cap 08/18/20 08/29/21 famotidine 20 mg tablet (Acid 20 mg PO DAILY 08/18/20 08/29/21 House Parent (famotidine)) blood sugar diagnostic #100 strip 11/05/20 07/27/21 ferrous sulfate 325 mg (65 mg 325 mg PO DAILY 11/24/20 08/29/21 iron) tablet (Feosol) glipizide 5 mg tablet 5 mg PO BID #180 tab 01/13/21 08/29/21 metformin 750 mg tablet,extended 750 mg PO BID #180 tab-cap 04/18/21 08/29/21 release 24 hr sitagliptin 50 mg tablet (Januvia) 50 mg PO DAILY #90 tab-cap 04/21/21 08/29/21 lisinopril 5 mg tablet 5 mg PO DAILY #90 tab 06/08/21 08/29/21 pantoprazole 40 mg tablet,delayed 40 mg PO DAILY #30 tab 08/30/21 release (Protonix) sucralfate 1 gram tablet (Carafate) 1 g PO QACHS #120 tab 08/30/21 Previous Rx's Medication Instructions Recorded nitroglycerin 0.4 mg sublingual 0.4 mg SUBLINGUAL PRN #25 tab MDD 06/25/18 tablet (Nitrostat) 3 tabs lancets 33 gauge (OneTouch Delica #100 each 06/23/20 Lancets) blood sugar diagnostic #100 strip 11/05/20 glipizide 5 mg tablet 5 mg PO BID #180 tab 01/13/21 metformin 750 mg tablet,extended 750 mg PO BID #180 tab-cap 04/18/21 release 24 hr sitagliptin 50 mg tablet (Januvia) 50 mg PO DAILY #90 tab-cap 04/21/21 lisinopril 5 mg tablet 5 mg PO DAILY #90 tab 06/08/21 pantoprazole 40 mg tablet,delayed 40 mg PO DAILY #30 tab 08/30/21 release (Protonix) sucralfate 1 gram tablet (Carafate) 1 g PO QACHS #120 tab 08/30/21 Allergies Allergy/AdvReac Type Severity Reaction Status Date / Time ciprofloxacin AdvReac Intermediate Verified 08/29/21 14:33 ranolazine [From Ranexa] AdvReac Intermediate Agitation Verified 08/29/21 14:33 General Stated Complaint: Chest Pain HELIO: 2 <FRANKO Narvaez - Last Filed: 08/31/21 14:08> HPI Narrative: This is a 76-year-old gentleman, past medical history of anemia, hypertension, CAD, significant cardiac history including cardiac bypass surgery and multiple stents, presenting to the ER for evaluation stating that he simply does not feel right. He states that he did not feel well yesterday but has a hard time explaining exactly what he was feeling. Today around 12:30 in the afternoon he was outside spraying down his driveway with the hose when he states that he just again did not feel right. He is extremely vague historian and has a hard time expressing himself but the best I can ascertain is mild dyspnea with exertion. Triage note reports that he felt dizzy but he denies any dizziness to me, admits to mild generalized weakness. He denies any chest pain but states he took a nitro because he wondered if it would help him. He took a nitro and it did not really help, states the symptoms are the same, but he does have a mild headache now. States that previously when he had a cardiac event he had more pain than what he experienced today. He denies recent illness or trauma. He denies any visual changes, neck pain, cough, chest pain, abdominal pain, nausea, vomiting, change in bowel or bladder function, numbness, tingling, weakness, swelling in his extremities. He reports that he takes an iron supplement and his stools are always slightly dark but denies any change of his stools, denies black tarry stools or bright red blood in his stool Review of Systems <FRANKO Power - Last Filed: 08/30/21 08:17> Constitutional Constitutional: Denies fever(s), Reports headache(s) and Reports weakness Eyes Eyes: Denies change in vision ENT Ears, Nose, Mouth, and Throat: Reports headache(s) and Denies neck pain Cardiovascular Cardiovascular: Denies chest pain and Reports dyspnea Respiratory Respiratory: Denies cough and Reports dyspnea Gastrointestinal Gastrointestinal: Denies abdominal pain, Denies nausea and Denies vomiting Genitourinary Genitourinary: Denies dysuria Musculoskeletal Musculoskeletal: Denies back pain, Denies neck pain, Denies numbness and Denies tingling Integumentary/Breasts Skin/Breast: Denies rash Neurologic Neurologic: Reports headache(s), Denies numbness, Denies tingling and Reports weakness Hematologic/Lymphatic Hematologic/Lymphatic: Reports easy bleeding and Reports easy bruising PFS <FRANKO Power - Last Filed: 08/30/21 08:17> All Active Problems (Updated 08/31/21 @ 00:04 by CHINO FOWLER) Exertional dyspnea (Acute) 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 aortic valve replacement with bioprosthetic valve (Chronic) Neck pain (Acute) Anemia (Chronic) Tendonitis of left rotator cuff (Acute) Bradycardia (Acute) Dizziness (Acute) Right groin pain (Acute) Chronic insomnia (Acute) Dizziness (Acute) Glucosuria (Acute) Congestion of respiratory tract (Acute) Chest pain (Acute) Shoulder pain, left (Acute) topical analgesics recommended Hypertension (Chronic) History of coronary angioplasty (Acute ~07/22/19) 07/22/19 [facility] RCA cutting balloon angioplasty History of coronary artery bypass surgery (Acute) History of intravascular stent placement (Acute) History of left heart catheterization (Acute) Kidney symptom or sign (Acute) Bilateral impacted cerumen (Chronic) he is advised veggie oil drops in each canal a few times /week to help keep wax loose/soft also to turn head to shower to help keep canals clear Trigger finger, left little finger (Chronic) Neck pain (Acute) Rash (Acute) Tic disorder (Acute) Rupture of tendon of biceps, long head (Acute) right Pulmonary nodules (Acute 08/21/14) RLL benign old granulomas Pseudophakia (Acute 01/08/18) 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) Pleural effusion on right (Acute 11/05/16) Other and unspecified angina pectoris (Acute) Mild non proliferative diabetic retinopathy (Acute 10/09/13) OPTICAL EXPRESSIONS Low back pain (Acute) consider seeing chiropractor stretch daily Kidney stone (Acute) Injury of digital nerve (Acute) LEFT History of tobacco use (Acute) Heart murmur (Acute) Gout (Acute) Essential hypertension (Acute 04/23/13) Diabetes mellitus (Chronic 10/24/12) cut glipizide in half (5 mg twice/day) Corneal edema (Acute 01/08/18) Atherosclerosis of [place] coronary artery (Chronic) CABG x 2 04/20; LEFT CATH 2001,2000, 2010; CORONARY ANGIOPLASTY 2009 stent 02/2018 neg stress echo 05/22 [facility] s/p redo CABG X 2 03/2020 Anxiety (Acute 08/21/14) Age-related nuclear cataract of right eye (Acute 01/08/18) Medical History Anxiety 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 DM (diabetes mellitus screen) Essential hypertension Gout Heart murmur History of tobacco use Tic disorder Surgical History Angioplasty (~2008) LAD LEFT HEART CARDIAC CATH LEFT HEART CARDIAC CATH, 1993 >40% LAD RT/LEFT HEART CARD CATH, 2000 RCA stent placed LEFT HEART CARDIAC CATH, 2001 PROCEDURES 2 vessel coronary artery bypass 2013 S/P cardiac cath 07/22/19 [facility] Stent placement 2000-VASCULAR/RCA 09/21/17-[facility] MID RCA (DISTAL EDGE OF PREVIOUS STENT) 02/2018- [facility] STENT MID RCA Social History Smoking/Tobacco Use Status: Former Tobacco Use tobacco type: cigarettes Quit Date: 08/13/93 Tobacco: How many years used: 25 Second Hand Exposure: Yes Smoking risk assessment performed?: Yes Alcohol Intake: current Alcohol Intake frequency: holidays/special occasions only Drug use: Never Substance use type: does not use Household members: spouse and children Communication Needs: Corrective Lenses Do you need help understanding health information?: Rarely Pets and animals: No Sexually active: Yes Do you think of yourself as: straight/heterosexual Current gender identity: male What is your relationship status?: How often do you talk on the phone with friends or family?: once per week Do you belong to any clubs or organized social groups?: no Panel score (0-1 are the most socially isolated patients): 1 What type of physical activity do you participate in: other Details: cardio Duration: < 15 minutes/day Frequency: daily Special kaur needs: No Agree to transfusion: No Seatbelt use: always Helmet use: No Drive intox or ride w/intox electric screw driver operator: No Do you feel safe at home: Yes Do you feel safe in your relationship?: Yes Exam <FRANKO Power - Last Filed: 08/30/21 08:17> Const General: cooperative, healthy appearing, comfortable and no acute distress Orientation: alert, awake and oriented x3 HENMT Head: normal to inspection, normocephalic and atraumatic Eyes Conjunctivae: conjunctivae normal Neck Neck: normal visual inspection, full ROM, trachea midline, supple and nontender Chest Chest: normal palpation of entire chest wall Resp Effort & Inspection: normal respiratory effort and able to speak in complete sentences Auscultation: diminished lung sounds bilaterally in the lower lung michel Cardio Rate: regular rate Rhythm: regular rhythm GI Palpation: soft and nontender Back/Spine/Pelvis Back: No back tenderness Skin General skin exam: no rashes or lesions noted Neuro General: patient alert, patient awake, moves all extremities and no focal motor deficits Cognition: normal cognition Speech: speech normal Gait: normal gait Motor: muscle tone normal throughout Sensory Exam: no sensory deficits noted Extrem General: normal to inspection, full ROM, capillary refill normal, no pedal edema and no calf tenderness Psych Appearance: grossly normal Mental Status: mental status grossly normal Course <FRANKO Power - Last Filed: 08/30/21 08:17> Vital Signs Vital signs: Vital Signs Temperature 36.1 C L 08/29/21 14:28 Pulse 66 08/29/21 14:28 Respiratory Rate 16 08/29/21 14:28 Blood Pressure 134/60 08/29/21 14:28 Pulse Oximetry 96 08/29/21 14:28 Temperature 36.1 C L 08/29/21 14:28 Temperature Source Temporal Artery Scan 08/29/21 14:28 Pulse 66 08/29/21 14:28 Respiratory Rate 16 08/29/21 14:28 Blood Pressure 134/60 08/29/21 14:28 Blood Pressure Position Supine 08/29/21 14:28 Pulse Oximetry 96 08/29/21 14:28 Oxygen Delivery Method Room Air 08/29/21 14:28 Oxygen Flow Rate 0 08/29/21 14:28 Pain Level 0 08/29/21 14:28 Sign Out <FRANKO Power - Last Filed: 08/30/21 08:17> Sign Out Data: Sign Out Comment: Extensive cardiac history. Simply did not feel well yesterday and again today while spraying his driveway. It would appear as though he is describing generalized weakness and mild dyspnea with exertion but denies any chest pain whatsoever. Patient given a single dose of aspirin. Initial troponin 77. Awaiting delta troponin and cardiology consultation Last updated by Keo Sommer PA at 08/29/21 16:34
--- NOTE | 2021-08-29 14:45 | DI.RAD_ITS ---
Exam(s) XR CHEST 2V PA LATERAL EXAM: XR CHEST 2V PA LATERAL CLINICAL HISTORY: chest pain. TECHNIQUE: 2D digital imaging was performed. COMPARISON: CR from 03/06/2019 FINDINGS: There has been interval further surgery. Repeat sternotomy and there is now a prosthetic aortic valv e in place. Coronary artery stents in left side of the heart are again noted. Heart size is normal. The mediastinum is not widened. Lungs are clear. No infiltrates nor pleural effusions. No pulmonary edema. No pneumothorax IMPRESSION: No acute pulmonary findings. Sternotomy. Prosthetic aortic valve. Coronary artery stents. DATA REPOSITORY: RADIATION DOSE DELIVERED:
[2021-08-29 15:16] LABS: Abs Immature Grans 0.03 10^3/uL (0.0-0.06); Absolute Basophil Count 0.02 10^3/uL (0.0-0.2); Absolute Eosinophil Count 0.08 10^3/uL (0.0-0.7); Absolute Monocyte Count 0.61 10^3/uL (0.1-0.8); Absolute Neutrophil Count 6.35 10^3/uL (1.2-6.7); Basophils % 0.2; HCT 27.1 % (40.0-50.0); HGB 9.1 g/dL (13.5-17.5); Immature Grans % 0.4; Lymphocytes % 12.4; MCH 30.5 pg (27.0-33.0); MCHC 33.6 % (32.0-36.0); MCV 90.9 fL (80-95); MPV 9.6 fL (8.0-11.0); Monocytes % 7.5; Neutrophils % 78.5; Nucleated RBC 0 %; Platelet Count 279 10^3/uL (130-400); RBC 2.98 10^6/uL (4.36-5.78); RDW 13.4 % (11.8-14.1); RDW-SD 43.5 fL; WBC 8.09 10^3/uL (4.4-10.8)
[2021-08-29 15:21] LABS: PTT Activated 21.7 sec (21.0-27.5); Prothrombin Time 9.8 sec (9.3-11.0)
[2021-08-29 15:21] LABS: Source Nasal/Nares
[2021-08-29 15:28] LABS: Bilirubin Negative (Negative); Blood Negative (Negative); Clarity Clear (Clear); Glucose 500 mg/dL (Negative); Ketones Negative (Negative); Leukocyte Esterase Negative (Negative); Nitrite Negative (Negative); Specific Gravity 1.025 (1.005-1.025); Urobilinogen 0.2 EU/dL (Up TO 0.2); pH 5.5 (5-8)
[2021-08-29 15:30] LABS: ALT 26 U/L (16-63); AST 14 U/L (15-37); Albumin 3.9 g/dL (3.4-5.0); Alkaline Phosphatase 81 U/L (46-116); Anion Gap 12.2 mmol/L (3-11); BUN 33 mg/dL (7-18); Bilirubin, Total 0.4 mg/dL (0.2-1.0); CO2 22.8 mmol/L (21.0-32.0); CREATININE 1.3 mg/dL (0.70-1.30); Calcium 9.2 mg/dL (8.5-10.1); Chloride 102 mmol/L (98-107); Estimated GFR 53.82 (mL/min/1.73m2); Glucose 275 mg/dL (74-106); Magnesium 1.6 mg/dL (1.8-2.4); NT-proBNP 145 pg/mL (<300); Potassium 4.5 mmol/L (3.5-5.1); Sodium 137 mmol/L (136-145); Total Protein 7.2 g/dL (6.4-8.2)
[2021-08-29 15:37] LABS: D-Dimer 436 ng/mlFEU (<500)
[2021-08-29 15:38] LABS: Troponin I 77 ng/L (<or=60)
[2021-08-29] MEDS: MAGNESIUM SULFATE 1 GM/100 ML BAG IVPB (15:48)
[2021-08-29] MEDS: Aspirin 325 MG TAB PO (15:48)
[2021-08-29 16:06] LABS: COVID-19 PCR Negative (Negative)
[2021-08-29 18:22] LABS: Troponin I 70 ng/L (<or=60)
--- NOTE | 2021-08-29 22:25 | W.PM.HP.N ---
Assessment and Plan Assessment and plan (1) Anemia: Status: Chronic Assessment and plan: Unknown cause of the anemia. Will check reticulocyte count and iron studies. His hemoglobin has bounced up and down a bit over the last year. We will check another blood count in the morning. (2) Atherosclerosis of [place] coronary artery: Status: Acute Assessment and plan: He has coronary artery disease. His troponins are bit elevated now. Recheck troponin level in the morning and a repeat ECG. History of Present Illness History of Present Illness Chief Complaint: not feeling well Narrative: This 76-year-old male is here because of not feeling well and mild shortness of breath. He has a history of coronary disease and has had a history of cardiac stents as well as bypass surgery and valve replacement. He said he is last had a catheterization of his heart about 6 months ago and he said it was normal. He says yesterday and today he did not feel great had some exertional shortness of breath but no chest or jaw or neck pain. He did try a nitroglycerin today but it did not help at all. He said he was out side spraying his driveway off because it was relatively warm today. He did not feel well and sat down and because his symptoms were persisting and not responsive to nitroglycerin he decided to come the emergency department. He felt a bit tired. He came very last time he took nitroglycerin but it was probably 6 months ago. He says he often gets chest pain associated with his heart disease. Sugar this morning was normal. He had not smoked cigarettes for years and does not drink alcohol. Review of Systems Constitutional Constitutional: Denies chills, Reports fatigue, Denies fever(s), Reports lethargy, Reports malaise, Denies poor appetite and Reports weakness ENT Ears, Nose, Mouth, and Throat: Denies dizziness Cardiovascular Cardiovascular: Denies chest pain, Denies chest pain at rest, Denies syncope, Denies irregular heart rhythm, Denies radiating jaw, neck or arm pain, Denies palpitations and Reports dyspnea on exertion Respiratory Respiratory: Denies cough, Denies hemoptysis and Reports dyspnea on exertion Gastrointestinal Gastrointestinal: Denies abdominal pain, Denies heartburn, Denies diarrhea, Denies nausea and Denies vomiting Genitourinary Genitourinary: Reports difficulty urinating and Denies dysuria Neurologic Neurologic: Denies confusion, Denies dizziness, Denies syncope, Denies seizure-like activity and Reports weakness Psychiatric Psychiatric: Denies confusion Endocrine Endocrine: Reports fatigue and Denies palpitations PFSH All Active Problems Neck pain (Acute) Anemia (Chronic) Dizziness (Acute) Tendonitis of left rotator cuff (Acute) Bradycardia (Acute) Dizziness (Acute) Right groin pain (Acute) Chronic insomnia (Acute) Dizziness (Acute) Glucosuria (Acute) UTI (urinary tract infection) (Acute) Congestion of respiratory tract (Acute) Chest pain (Acute) Shoulder pain, left (Acute) topical analgesics recommended Hypertension (Chronic) History of coronary angioplasty (Acute ~07/22/19) [place] [facility] [place] History of coronary artery bypass surgery (Acute) History of intravascular stent placement (Acute) History of left heart catheterization (Acute) Kidney symptom or sign (Acute) Bilateral impacted cerumen (Chronic) he is advised veggie oil drops in each canal a few times /week to help keep wax loose/soft also to turn head to shower to help keep canals clear Trigger finger, left little finger (Chronic) Neck pain (Acute) Rash (Acute) Tic disorder (Acute) Rupture of tendon of biceps, long head (Acute) right Pulmonary nodules (Acute 08/21/14) RLL benign old granulomas Pseudophakia (Acute 01/08/18) 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) Pleural effusion on right (Acute 11/05/16) Other and unspecified angina pectoris (Acute) Mild non proliferative diabetic retinopathy (Acute 10/09/13) OPTICAL EXPRESSIONS Low back pain (Acute) consider seeing chiropractor stretch daily Kidney stone (Acute) Injury of digital nerve (Acute) LEFT History of tobacco use (Acute) Heart murmur (Acute) Gout (Acute) Essential hypertension (Acute 04/23/13) Diabetes mellitus (Chronic 10/24/12) cut glipizide in half (5 mg twice/day) Corneal edema (Acute 01/08/18) Atherosclerosis of [place] coronary artery (Acute) CABG x 2 04/20; LEFT CATH 2001,2000, 2010; CORONARY ANGIOPLASTY 2009 stent 02/2018 neg stress echo 05/22 [facility] [place]o CABG X 2 03/2020 Anxiety (Acute 08/21/14) Age-related nuclear cataract of right eye (Acute 01/08/18) Medical History Anxiety Atherosclerosis of [place] coronary 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 DM (diabetes mellitus screen) Essential hypertension Gout Heart murmur History of tobacco use Tic disorder Surgical History Angioplasty (~2008) LAD LEFT HEART CARDIAC CATH LEFT HEART CARDIAC CATH, 1993 >40% LAD RT/LEFT HEART CARD CATH, 2000 RCA stent placed LEFT HEART CARDIAC CATH, 2001 PROCEDURES 2 vessel coronary artery bypass 2012 S/P cardiac [place] [facility] [place] 2000-VASCULAR/RCA 09/[place] [place]CA (DISTAL EDGE OF PREVIOUS STENT) 02[place]2018[place] [facility] [place]CA Social History Smoking/Tobacco Use Status: Former Tobacco Use tobacco type: cigarettes Quit Date: 08/13/93 Tobacco: How many years used: 25 Second Hand Exposure: Yes Smoking risk assessment performed?: Yes Alcohol Intake: current Alcohol Intake frequency: holidays/special occasions only Drug use: Never Substance use type: does not use Household members: spouse and children Communication Needs: Corrective Lenses Do you need help understanding health information?: Rarely Pets and animals: No Sexually active: Yes Do you think of yourself as: straight/heterosexual Current gender identity: male What is your relationship status?: How often do you talk on the phone with friends or family?: once per week Do you belong to any clubs or organized social groups?: no Panel score (0-1 are the most socially isolated patients): 1 What type of physical activity do you participate in: other Details: cardio Duration: < 15 minutes/day Frequency: daily Special kaur needs: No Agree to transfusion: No Seatbelt use: always Helmet use: No Drive intox 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 Do you feel safe at home: Yes Do you feel safe in your relationship?: Yes Meds Allergies and Home Medications Allergies Allergy/AdvReac Type Severity Reaction Status Date / Time ciprofloxacin AdvReac Intermediate Verified 08/29/21 14:33 ranolazine [From Ranexa] AdvReac Intermediate Agitation Verified 08/29/21 14:33 Home Medications Medication Instructions Recorded Confirmed Type aspirin 81 mg tablet,delayed 1 tab PO DAILY 09/26/13 08/29/21 History release (Aspir-) clopidogrel 75 mg tablet (Plavix) 1 tab PO DAILY #90 tab 12/18/13 08/29/21 History blood-glucose meter (Kubi MobiTouch #1 kit 08/25/14 07/27/21 History Ultra2 Meter) nitroglycerin 0.4 mg sublingual 0.4 mg SUBLINGUAL PRN #25 tab MDD 06/25/18 08/29/21 Rx tablet (Nitrostat) 3 tabs magnesium oxide 400 mg PO DAILY cap 11/28/18 08/29/21 History atorvastatin 80 mg tablet 80 mg PO QHS 07/29/19 08/29/21 History lancets 33 gauge (OneTouch Delica #100 each 06/23/20 07/27/21 Rx Lancets) acetaminophen 500 mg capsule 500 mg PO DAILY PRN cap 08/18/20 08/29/21 History famotidine 20 mg tablet (Acid 20 mg PO DAILY 08/18/20 08/29/21 History [employer] Merch[employer] (famotidine)) blood sugar diagnostic #100 strip 11/05/20 07/27/21 Rx ferrous sulfate 325 mg (65 mg 325 mg PO DAILY 11/24/20 08/29/21 History iron) tablet (Feosol) glipizide 5 mg tablet 5 mg PO BID #180 tab 01/13/21 08/29/21 Rx metformin 750 mg tablet,extended 750 mg PO BID #180 tab-cap 04/18/21 08/29/21 Rx release 24 hr sitagliptin 50 mg tablet (Januvia) 50 mg PO DAILY #90 tab-cap 04/21/21 08/29/21 Rx lisinopril 5 mg tablet 5 mg PO DAILY #90 tab 06/08/21 08/29/21 Rx Exam Const General: cooperative, healthy appearing, no acute distress and well developed Nutritional Appearance: average body habitus and well nourished Neck Neck: normal visual inspection and no lymphadenopathy Thyroid: thyroid normal Resp Auscultation: clear to auscultation bilaterally, no rales and no wheezes Cardio Rate: regular rate Rhythm: regular rhythm Heart Sounds: S1 normal, S2 normal, no gallops and no murmurs GI Inspection: normal to inspection and non-distended Palpation: soft, no hepatosplenomegaly, not firm and nontender Neuro General: patient alert, patient awake and patient oriented x3 Extrem General: no clubbing, no cyanosis and no edema Results Labs Result diagrams: 08/29/21 14:45 08/29/21 14:45 Labs: Laboratory Results - last 24 hr 08/29/21 08/29/21 08/29/21 14:45 14:45 14:45 WBC 8.09 RBC 2.98 L Hgb 9.1 L Hct 27.1 L MCV 90.9 MCH 30.5 MCHC 33.6 RDW 13.4 Plt Count 279 MPV 9.6 Immature Gran % 0.4 Neutrophils % 78.5 Lymphocytes % 12.4 Monocytes % 7.5 Eosinophils % 1.0 Basophils % 0.2 Nucleated RBC % 0 Absolute Neutrophils 6.35 Absolute Lymphocytes 1.00 L Absolute Monocytes 0.61 Absolute Eosinophils 0.08 Absolute Basophils 0.02 PT 9.8 INR 1.0 APTT 21.7 D-Dimer 436 Sodium 137 Potassium 4.5 Chloride 102 Carbon Dioxide 22.8 Anion Gap 12.2 H BUN 33 H Creatinine 1.3 Estimated GFR/1.73 m2 53.82 Glucose 275 H Calcium 9.2 Magnesium 1.6 L Total Bilirubin 0.4 AST 14 L ALT 26 Alkaline Phosphatase 81 Troponin I 77 H* NT-Pro-B Natriuret Pep 145 Total Protein 7.2 Albumin 3.9 Urine Color Urine Clarity Urine pH Ur Specific [place] Urine Protein Urine Ketones Urine Blood Urine Nitrite Urine Bilirubin Urine Urobilinogen Ur Leukocyte Esterase Urine Glucose COVID-19 Source SARS-CoV-2 (PCR) 08/29/21 08/29/21 08/29/21 14:57 15:15 17:38 WBC RBC Hgb Hct MCV MCH MCHC RDW Plt Count MPV Immature Gran % Neutrophils % Lymphocytes % Monocytes % Eosinophils % Basophils % Nucleated RBC % Absolute Neutrophils Absolute Lymphocytes Absolute Monocytes Absolute Eosinophils Absolute Basophils PT INR APTT D-Dimer Sodium Potassium Chloride Carbon Dioxide Anion Gap BUN Creatinine Estimated GFR/1.73 m2 Glucose Calcium Magnesium Total Bilirubin AST ALT Alkaline Phosphatase Troponin I 70 H* NT-Pro-B Natriuret Pep Total Protein Albumin Urine Color Yellow Urine Clarity Clear Urine pH 5.5 Ur Specific [place] 1.025 Urine Protein Negative Urine Ketones Negative Urine Blood Negative Urine Nitrite Negative Urine Bilirubin Negative Urine Urobilinogen 0.2 Ur Leukocyte Esterase Negative Urine Glucose 500 H COVID-19 Source Nasal/Nares SARS-CoV-2 (PCR) Negative Last Vital Signs Temp 36.6 C 08/29/21 20:08 Pulse 74 08/29/21 20:24 Resp 16 08/29/21 20:08 BP 148/70 H 08/29/21 20:08 Pulse Ox 98 08/29/21 20:10
--- NOTE | 2021-08-30 | DI.US_ITS ---
APPROVED REPORT EXAM: Comprehensive 2D, Doppler, and color-flow Echocardiogram Patient Location: In-Patient Room/Bed: [facility] Gem Carver: Katerine Ny RDCS (AE) Indications: Dyspnea, Positive troponin, Evaluate Lv/RV function, Bioprosthetic aortic valve Other Information Study Quality: Adequate Conclusion Normal left ventricular wall thickness and chamber size. Estimated ejection fraction 60 to 65%. Wal l motion is normal Right ventricle is not well visiualized Both atria are normal in size There is a bioprosthetic aortic valve. Mean gradient is 11 mmHg. There is no aortic regurgitation Moderate mitral annular calcification. Trace to mild mitral regurgitation Normal tricuspid valve with trace to mild regurgitation. Estimated right ventricular systolic pressu re is 33 mmHg Dilated ascending aorta measuring 3.67 cm Wall motion Left Ventricle The left ventricle is normal size. The left ventricular systolic function is normal. The left ventric ular ejection fraction is within the normal range. There is normal left ventricular wall thickness. T here is normal LV segmental wall motion. There is no ventricular septal defect visualized. LVEF is 60 -65%. Right Ventricle Right ventricle is not well visualized. Right ventricular systolic function could not be assessed. Th e RVSP is 33.5 mmHg. Atria The left atrium size is normal. The right atrium size is normal. The interatrial septum is intact wit h no evidence for an atrial septal defect. Aortic Valve Aortic valve is trileaflet. There is no aortic valvular stenosis. No aortic regurgitation is present. Bioprosthetic aortic valve is present. Mitral Valve Moderate mitral annular calcification. No evidence of mitral valve stenosis. Trace to mild mitral reg urgitation. Tricuspid Valve The tricuspid valve is normal in structure. There is no tricuspid valve stenosis. Trace tricuspid reg urgitation. Pulmonic Valve The pulmonary valve is normal in structure. There is no pulmonic valvular stenosis. Trace pulmonic re gurgitation. Great Vessels The aortic root is normal in size. The ascending aorta is mildly dilated.3.67 cm Aortic arch is kamini l in caliber. IVC is normal in size and collapses >50% with inspiration. Pericardium There is no pericardial effusion. 2D Dimensions IVSD d PLAX 1.05 cm M: 0.6-1.2 LV Vol A2C d MOD 94.5 mL LVPW d PLAX 1.05 cm M: 0.6 - 1.2 LV Vol A4C d MOD 113.0 mL LVID d PLAX 4.66 cm M: 4.2 - 5.8 LA vol/ BSA A2C s A-L 33.7 mL/m2 LVDs 3.10 cm M: 2.5 - 4.0 LA vol/ BSA A4C s A-L 30.3 mL/m2 Ao Root d 3.09 cm M: 3.1 - 3.7 LA Vol/ BSA Biplane s A-L 32.4 mL/m2 RA Area A4C 17.07 cm2 LA Area A4C s MOD 20.48 cm2 RA Vol/ BSA A4C s A-L 23.4 mL/m2 LA Area A2C s MOD 21.85 cm2 Ao Asc Diam d 3.67 cm M: 2.6 - 3.4 LV EF A4C MOD 60.8 % LV EF Teichholz 61.8 % LV EF A2C MOD 65.3 % LVEF (Montaño's) 61.26 % M: 52 - 72 LV EF Biplane MOD 61.3 % LV Volume 77.69 mL M: 62 - 150 SV 63.63 mL LV Volume Index 38.65 mL/m2 M: 34 - 74 SV Index 31.55 mL/m2 LV Vol Biplane MOD 103.9 mL FS 33.15 % LV Diastology MV E' medial 0.093 (>0.07 m/s) E/A Ratio 0.7 LV E/e MED 11.40 (<14) MV E Vmax 1.06 (0.4-1.3 m/s) MV E' lateral 0.117 (>0.1 m/s) MV A Vmax 1.55 (0.4-1.3 m/s) LV E/e LAT 9.05 (<14) MV E/A Ratio 0.67 MV E/E' medial 11.44 MV E/E' lateral 9.06 Aortic Valve LVOT Area 3.62 cm2 AoV Area Vmax 2.59 cm2 LVOT Vmax 1.60 m/s AoV Area/ BSA (Vmax) 1.28 cm2/m2 LVOT Mean Jim. 0.90 m/s CHARITO Mean Jim. 2.17 cm2 LVOT Peak Grad 10.2 mmHg CHARITO Mean Jim. Index 1.08 cm2/m2 LVOT Mean Grad 4.1 mmHg LVOT VTI 0.322 m LVOT Diam s 2.10 cm AoV Vmax 2.24 m/s Velocity Ratio 0.71 AoV Mean Jim. 1.50 m/s AoV Peak Grad 20.0 mmHg LVOT SV 116.88 mL AoV Mean Grad 10.4 mmHg AoV VTI 0.402 m AoV Area VTI 2.91 cm2 AoV Area/ BSA (VTI) 1.44 cm/m2 Mitral Valve MV DT 327 (160-240 msec) MV PHT 95 msec MV Area PHT 2.32 cm2 MV VTI 0.491 m MV Area VTI 2.38 (4.0-6.0 cm2) Pulmonary Valve PV Vmax 1.43 (0.5-1.5 m/s) RVOT Peak Gr. 4.85 mmHg PV Peak Grad 8.2 mmHg RVOT Mean Gr. 2.25 mmHg PV Mean Grad 4.3 mmHg RVOT VTI 0.195 m PV VTI 0.252 m RVOT Vmax 1.10 m/s Tricuspid Valve TR Peak Grad 30.5 mmHg TR Vmax 2.76 m/s RA Pressure 3.00 mmHg RVSP (TR) 33.5 mmHg
[2021-08-30] MEDS: glipiZIDE 5 MG TAB PO ×2 (00:21→09:47)
[2021-08-30] MEDS: Melatonin 3 MG TAB 6 MG PO (00:21)
[2021-08-30] MEDS: Atorvastatin 40 MG TAB 80 MG PO (00:22)
[2021-08-30 00:24] VITALS: BP 155/76; PULSE 73; RESP 18; TEMP 36.4; O2SAT 100
[2021-08-30 03:50] VITALS: BP 115/67; PULSE 82; RESP 18; TEMP 36.4; O2SAT 98
[2021-08-30 06:48] VITALS: PULSE 64
--- NOTE | 2021-08-30 07:00 | RT.EKG_ITS ---
APPROVED REPORT Exam: Resting ECG Reason for Exam: abnormal troponin Patient Location: I HR:64 bpm ECG Measurements Heart Rate 64 AXIS ID 173 P 67 QRSd 139 QRS -12 QT 416 T 83 QTc 430 Conclusion Sinus rhythm...normal P axis, V-rate 50- 99 Right bundle branch block...QRSd>120, terminal axis(90,270) Baseline wander in lead(s) V4
[2021-08-30 07:12] LABS: Abs Immature Grans 0.05 10^3/uL (0.0-0.06); Absolute Basophil Count 0.02 10^3/uL (0.0-0.2); Absolute Eosinophil Count 0.18 10^3/uL (0.0-0.7); Absolute Lymphocyte Count 1.09 10^3/uL (1.2-3.4); Absolute Monocyte Count 0.56 10^3/uL (0.1-0.8); Absolute Neutrophil Count 4.28 10^3/uL (1.2-6.7); Basophils % 0.3; Eosinophils % 2.9; HCT 23.9 % (40.0-50.0); Immature Grans % 0.8; Lymphocytes % 17.6; MCH 29.7 pg (27.0-33.0); MCHC 33.5 % (32.0-36.0); MCV 88.8 fL (80-95); MPV 9.7 fL (8.0-11.0); Monocytes % 9.1; Neutrophils % 69.3; Nucleated RBC 0 %; Platelet Count 263 10^3/uL (130-400); RBC 2.69 10^6/uL (4.36-5.78); RDW 13.5 % (11.8-14.1); RDW-SD 42.9 fL; Reticulocyte 3.9 % (0.5-2.4); WBC 6.18 10^3/uL (4.4-10.8)
[2021-08-30 07:33] LABS: Anion Gap 10.4 mmol/L (3-11); BUN 26 mg/dL (7-18); CO2 23.6 mmol/L (21.0-32.0); Calcium 8.7 mg/dL (8.5-10.1); Chloride 105 mmol/L (98-107); Glucose 181 mg/dL (74-106); Magnesium 1.8 mg/dL (1.8-2.4); Potassium 4.3 mmol/L (3.5-5.1); Sodium 139 mmol/L (136-145)
[2021-08-30 07:36] LABS: Troponin I 68 ng/L (<or=60)
[2021-08-30 07:54] LABS: Iron 21 ug/dL (65-175); Total Iron Binding Capacity 282 ug/dL (250-450); Transferrin Sat 7 % (20-55)
[2021-08-30 08:18] VITALS: BP 156/77; PULSE 65; RESP 18; TEMP 36.9; O2SAT 97
[2021-08-30] MEDS: Normal Saline Flush 10 ML SYR IVP ×2 (09:45→14:15)
[2021-08-30] MEDS: Famotidine 20 MG TAB PO (09:47)
[2021-08-30] MEDS: Clopidogrel 75 MG TAB PO (09:48)
[2021-08-30] MEDS: Lisinopril 5 MG TAB PO (09:48)
[2021-08-30] MEDS: Aspirin E.C. 81 MG TABEC PO (09:48)
[2021-08-30] MEDS: Magnesium Oxide 400 MG TAB PO (09:49)
--- NOTE | 2021-08-30 10:35 | INITIAL_ITS ---
- If Service Date Differs Date of service: 08/30/21 Time of Service: 10:36 Care Management Initial Assess REASON FOR HOSPITALIZATION:: Anemia PAST MEDICAL HISTORY/PAST SURGICAL HISTORY:: All Active Problems . Neck pain (Acute). Anemia (Chronic). Dizziness (Acute). Tendonitis of left rotator cuff (Acute). Bradycardia (Acute). Dizziness (Acute). Right groin pain (Acute). Chronic insomnia (Acute). Dizziness (Acute). Glucosuria (Acute). UTI (urinary tract infection) (Acute). Congestion of respiratory tract (Acute). Chest pain (Acute). Shoulder pain, left (Acute). topical analgesics recommended. Hypertension (Chronic). History of coronary angioplasty (Acute ~07/22/19). 07/22/19 [facility] [place] RCA cutting balloon angioplasty. History of coronary artery bypass surgery (Acute). History of intravascular stent placement (Acute). History of left heart catheterization (Acute). Kidney symptom or sign (Acute). Bilateral impacted cerumen (Chronic). he is advised veggie oil drops in each canal a few times /week to help keep wax loose/soft. also to turn head to shower to help keep canals clear. Trigger finger, left little finger (Chronic). Neck pain (Acute). Rash (Acute). Tic disorder (Acute). Rupture of tendon of biceps, long head (Acute). right. Pulmonary nodules (Acute 08/21/14). RLL benign old granulomas. Pseudophakia (Acute 01/08/18). 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). Pleural effusion on right (Acute 11/05/16). Other and unspecified angina pectoris (Acute). Mild non proliferative diabetic retinopathy (Acute 10/09/13). OPTICAL EXPRESSIONS. Low back pain (Acute). consider seeing chiropractor. stretch daily. Kidney stone (Acute). Injury of digital nerve (Acute). LEFT. History of tobacco use (Acute). Heart murmur (Acute). Gout (Acute). Essential hypertension (Acute 04/23/13). Diabetes mellitus (Chronic 10/24/12). cut glipizide in half (5 mg twice/day). Corneal edema (Acute 01/08/18). Atherosclerosis of [place] coronary artery (Acute). CABG x 2 04/20; LEFT CATH 2001,2000, 2010; CORONARY ANGIOPLASTY 2008. stent 02/2018. neg stress echo 05/22 [facility] [place] redo CABG X 2 03/2020. Anxiety (Acute 08/21/14). Age-related nuclear cataract of right eye (Acute 01/08/18). Medical History . Anxiety. Atherosclerosis of [place] coronary 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. DM (diabetes mellitus screen). Essential hypertension. Gout. Heart murmur. History of tobacco use. Tic disorder. Surgical History . Angioplasty (~2008). LAD. LEFT HEART CARDIAC CATH. LEFT HEART CARDIAC CATH, 1993. >40% LAD. RT/LEFT HEART CARD CATH, 2000. RCA stent placed. LEFT HEART CARDIAC CATH, 2001. PROCEDURES. 2 vessel coronary artery bypass 2012. S/P cardiac cath. 07/22/19 [facility] [place]. Stent placement. 2000-VASCULAR/RCA. 09/21/17-[facility] [place] MID RCA (DISTAL EDGE OF PREVIOUS STENT). 02/2018- [facility] [place] STENT MID RCA PREVIOUS FUNCTIONAL STATUS/SOCIAL/FAMILY SUPPORTS:: Manny lives in a single family home in [place] with his Janneth. They have one son who has special needs and continues to live with them. Manny shared that his son is very independent and has worked at the same job for over 20 years. 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 He is independent at baseline. CURRENT FUNCTIONAL STATUS:: Javier was sitting up in a chair when met with him. He shared that he has been feeling fatigued due to the anemia, a prooblem he has not had in the past. There was discussion about possibly having an endoscopy but the decision was made to do this on an outpatient basis. Manny will be discharged home later today. ADVANCE DIRECTIVES:: none on file Has patient been provided with info about the portal/API?: Yes Did the patient sign up for the portal?: Yes (previously) CODE STATUS:: Full Code INSURANCE COVERAGE / FINANCIAL ISSUES:: Medicare. [facility] CURRENT HOME/COMMUNITY SERVICES/EQUIPMENT:: none currently PRIMARY CARE PHYSICIAN:: Jon Ch POTENTIAL DISCHARGE NEEDS:: follow up with PCP and plan of care PATIENT/FAMILY EDUCATION NEEDS:: Review of discharge instructions, limitations, follow up plan, acticvity and discuss Ask Me Three TRANSPORTATION:: via private vehicle with family PLAN:: Manny will likely be discharged home with no new services. He will follow up with community providers and plan of care and transport with family.
--- NOTE | 2021-08-30 10:57 | W.SURGCON ---
Date of service: 08/30/21 Time of Service: 17:50 Assessment and Plan Assessment and plan (1) Elevated troponin I level: Status: Acute Assessment and plan: -Cardiology feels this is more of a demand ischemia in light of his anemia and not an NSTEMI. He is stable for proposed procedure. He can safely stop aspirin Plavix for 4 days before the procedure. He has a bioprosthetic valve that has been in for greater than 6 months and does not require endocarditis prophylaxis We will plan on doing the procedure on Sunday. My office will contact the patient to make arrangements. We will repeat labs and give an additional dose of IV Bentyl for Sunday. -Please reviewed cardiology consult. Thanks to Dr. Bowen for her input into this case. Currently the patient is pain-free and tolerating a diet. He shows no signs of acute GI bleed. He will be discharged home on tonics and Carafate. We discussed how to use this medication. Further recommendations to follow based on the results of the EGD. D/c is done by hospitalist service 60 minutes spent in consultation with this patient today, and coordinating care (2) Exertional dyspnea: Status: Acute (3) Iron deficiency anemia secondary to blood loss (chronic): Status: Acute (4) History of aortic valve replacement with bioprosthetic valve: Status: Acute (5) Anemia: Status: Chronic (6) Dizziness: Status: Acute (7) DM (diabetes mellitus screen): (8) Hypertension: Status: Chronic (9) History of coronary angioplasty: Status: Acute (10) History of coronary artery bypass surgery: Status: Acute (11) History of intravascular stent placement: Status: Acute History of Present Illness Narrative: pt was admitted throught the ED 08/29: 76-year-old gentleman, extensive cardiac history, presenting to the ER stating he simply does not feel well, this started yesterday and again today.? He reports mild dyspnea with exertion and generalized weakness but denies any chest pain whatsoever. He was admitted to ospitalists service. Hgb 8.0. His hgb has been very errartic and flunctuating dramactically. He is on daily 81mg ASA/plavix. He notes he does have some H/I that he uses tums for 3-4x/wk. He is not on stomach medication. He is not having any abdominal pain/nasuea today. He is very constipated, adn having hard, black stools. He is on iron therapy. Stools were hem+. He has had a CE in the past- adn was normal per pt. There is no family Hx of CRC. He has not having any weight loss. He denies pain or difficulty swallowing. appetite is good. No abdominal [place] after eating or food intolerances. He is not vomiting blood or noting gross blood in the stools. He currently feels good and wants to go home. There are no prior CE reports in either [facility] or [facility]. Pt did eat this am. Dr. Bowen did not feel that pt had an NSTEMI. That he was acceptible risk for the procedure - please refer to her consult. There is also concern w/ Anethesia ning and his cardiac status. I did d/w case w/ anesthesia adn cardiology (Dr. Bowen). Cardiology does not feel that his troponin release is significant and not represent acute heart Dx. He is stable to be off his ASA/Plavix for 5days before the procedure. She feels that he is stable for endoscopy. Review of Systems Constitutional Constitutional: Reports system reviewed and no additional complaints, except as documented PFSH All Active Problems Elevated troponin I level (Acute) Exertional dyspnea (Acute) Iron deficiency anemia secondary to blood loss (chronic) (Acute) History of aortic valve replacement with bioprosthetic valve (Acute) Neck pain (Acute) Anemia (Chronic) Dizziness (Acute) Tendonitis of left rotator cuff (Acute) Bradycardia (Acute) Dizziness (Acute) Right groin pain (Acute) Chronic insomnia (Acute) Dizziness (Acute) Glucosuria (Acute) Congestion of respiratory tract (Acute) Chest pain (Acute) Shoulder pain, left (Acute) topical analgesics recommended Hypertension (Chronic) History of coronary angioplasty (Acute ~07/22/19) 07/22/19 [facility] RCA cutting balloon angioplasty History of coronary artery bypass surgery (Acute) History of intravascular stent placement (Acute) History of left heart catheterization (Acute) Kidney symptom or sign (Acute) Bilateral impacted cerumen (Chronic) he is advised veggie oil drops in each canal a few times /week to help keep wax loose/soft also to turn head to shower to help keep canals clear Trigger finger, left little finger (Chronic) Neck pain (Acute) Rash (Acute) Tic disorder (Acute) Rupture of tendon of biceps, long head (Acute) right Pulmonary nodules (Acute 08/21/14) RLL benign old granulomas Pseudophakia (Acute 01/08/18) 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) Pleural effusion on right (Acute 11/05/16) Other and unspecified angina pectoris (Acute) Mild non proliferative diabetic retinopathy (Acute 10/09/13) OPTICAL EXPRESSIONS Low back pain (Acute) consider seeing chiropractor stretch daily Kidney stone (Acute) Injury of digital nerve (Acute) LEFT History of tobacco use (Acute) Heart murmur (Acute) Gout (Acute) Essential hypertension (Acute 04/23/13) Diabetes mellitus (Chronic 10/24/12) cut glipizide in half (5 mg twice/day) Corneal edema (Acute 01/08/18) Atherosclerosis of [place] coronary artery (Acute) CABG x 2 04/20; LEFT CATH 2001,2000, 2010; CORONARY ANGIOPLASTY 2009 stent 02/2018 neg stress echo 05/[address] 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 DM (diabetes mellitus screen) Essential hypertension Gout Heart murmur History of tobacco use Tic disorder Surgical History Angioplasty (~2008) LAD LEFT HEART CARDIAC CATH LEFT HEART CARDIAC CATH, 1993 >40% LAD RT/LEFT HEART CARD CATH, 2000 RCA stent placed LEFT HEART CARDIAC CATH, 2001 PROCEDURES 2 vessel coronary artery bypass 2012 S/P cardiac cath 07/22/19 [facility] Stent placement 2000-VASCULAR/RCA 09/21/17-[facility] MID RCA (DISTAL EDGE OF PREVIOUS STENT) 02/2018- [facility] STENT MID RCA Social History Smoking/Tobacco Use Status: Former Tobacco Use tobacco type: cigarettes Quit Date: 08/13/93 Tobacco: How many years used: 25 Second Hand Exposure: Yes Smoking risk assessment performed?: Yes Alcohol Intake: current Alcohol Intake frequency: holidays/special occasions only Drug use: Never Substance use type: does not use Household members: spouse and children Communication Needs: Corrective Lenses Do you need help understanding health information?: Rarely Pets and animals: No Sexually active: Yes Do you think of yourself as: straight/heterosexual Current gender identity: male What is your relationship status?: How often do you talk on the phone with friends or family?: once per week Do you belong to any clubs or organized social groups?: no Panel score (0-1 are the most socially isolated patients): 1 What type of physical activity do you participate in: other Details: cardio Duration: < 15 minutes/day Frequency: daily Special kaur needs: No Agree to transfusion: No Seatbelt use: always Helmet use: No Drive intox or ride w/intox shuttle driver: No Do you feel safe at home: Yes Do you feel safe in your relationship?: Yes Exam HENMT Other: Dentition in fair repair. No thrush. No jaundice. He has had cataract surgery Chest Other: -Postsurgical changes noted. The incision is well-healed with no signs of ostial hernia Resp Other: R/R/R no productive cough GI Other: Abdomen is soft and nontender today Results Last Vital Signs Temp 36.9 C 08/30/21 08:18 Pulse 65 08/30/21 08:18 Resp 18 08/30/21 08:18 BP 156/77 H 08/30/21 08:18 Pulse Ox 97 08/30/21 08:18 Labs Result diagrams: 08/30/21 11:30 08/30/21 06:28 Labs: Laboratory Results - last 24 hr 08/29/21 08/29/21 08/29/21 14:45 14:45 14:45 WBC 8.09 RBC 2.98 L Hgb 9.1 L Hct 27.1 L MCV 90.9 MCH 30.5 MCHC 33.6 RDW 13.4 Plt Count 279 MPV 9.6 Reticulocyte % (Auto) Immature Gran % 0.4 Neutrophils % 78.5 Lymphocytes % 12.4 Monocytes % 7.5 Eosinophils % 1.0 Basophils % 0.2 Nucleated RBC % 0 Absolute Neutrophils 6.35 Absolute Lymphocytes 1.00 L Absolute Monocytes 0.61 Absolute Eosinophils 0.08 Absolute Basophils 0.02 PT 9.8 INR 1.0 APTT 21.7 D-Dimer 436 Sodium 137 Potassium 4.5 Chloride 102 Carbon Dioxide 22.8 Anion Gap 12.2 H BUN 33 H Creatinine 1.3 Estimated GFR/1.73 m2 53.82 Glucose 275 H Calcium 9.2 Magnesium 1.6 L Iron TIBC Transferrin % Sat Total Bilirubin 0.4 AST 14 L ALT 26 Alkaline Phosphatase 81 Troponin I 77 H* NT-Pro-B Natriuret Pep 145 Total Protein 7.2 Albumin 3.9 Urine Color Urine Clarity Urine pH Ur Specific [place] Urine Protein Urine Ketones Urine Blood Urine Nitrite Urine Bilirubin Urine Urobilinogen Ur Leukocyte Esterase Urine Glucose COVID-19 Source SARS-CoV-2 (PCR) Patient ABO/Rh Antibody Screen 08/29/21 08/29/21 08/29/21 14:57 15:15 17:38 WBC RBC Hgb Hct MCV MCH MCHC RDW Plt Count MPV Reticulocyte % (Auto) Immature Gran % Neutrophils % Lymphocytes % Monocytes % Eosinophils % Basophils % Nucleated RBC % Absolute Neutrophils Absolute Lymphocytes Absolute Monocytes Absolute Eosinophils Absolute Basophils PT INR APTT D-Dimer Sodium Potassium Chloride Carbon Dioxide Anion Gap BUN Creatinine Estimated GFR/1.73 m2 Glucose Calcium Magnesium Iron TIBC Transferrin % Sat Total Bilirubin AST ALT Alkaline Phosphatase Troponin I 70 H* NT-Pro-B Natriuret Pep Total Protein Albumin Urine Color Yellow Urine Clarity Clear Urine pH 5.5 Ur Specific [place] 1.025 Urine Protein Negative Urine Ketones Negative Urine Blood Negative Urine Nitrite Negative Urine Bilirubin Negative Urine Urobilinogen 0.2 Ur Leukocyte Esterase Negative Urine Glucose 500 H COVID-19 Source Nasal/Nares SARS-CoV-2 (PCR) Negative Patient ABO/Rh Antibody Screen 08/30/21 08/30/21 08/30/21 06:28 06:28 06:28 WBC RBC Hgb Hct MCV MCH MCHC RDW Plt Count MPV Reticulocyte % (Auto) 3.9 H Immature Gran % Neutrophils % Lymphocytes % Monocytes % Eosinophils % Basophils % Nucleated RBC % Absolute Neutrophils Absolute Lymphocytes Absolute Monocytes Absolute Eosinophils Absolute Basophils PT INR APTT D-Dimer Sodium 139 Potassium 4.3 Chloride 105 Carbon Dioxide 23.6 Anion Gap 10.4 BUN 26 H Creatinine 1.0 Estimated GFR/1.73 m2 >= 60.00 Glucose 181 H D Calcium 8.7 Magnesium 1.8 Iron 21 L TIBC 282 Transferrin % Sat 7 L Total Bilirubin AST ALT Alkaline Phosphatase Troponin I 68 H* NT-Pro-B Natriuret Pep Total Protein Albumin Urine Color Urine Clarity Urine pH Ur Specific [place] Urine Protein Urine Ketones Urine Blood Urine Nitrite Urine Bilirubin Urine Urobilinogen Ur Leukocyte Esterase Urine Glucose COVID-19 Source SARS-CoV-2 (PCR) Patient ABO/Rh Antibody Screen 08/30/21 08/30/21 06:28 07:55 WBC 6.18 RBC 2.69 L Hgb 8.0 L Hct 23.9 L MCV 88.8 MCH 29.7 MCHC 33.5 RDW 13.5 Plt Count 263 MPV 9.7 Reticulocyte % (Auto) Immature Gran % 0.8 Neutrophils % 69.3 Lymphocytes % 17.6 Monocytes % 9.1 Eosinophils % 2.9 Basophils % 0.3 Nucleated RBC % 0 Absolute Neutrophils 4.28 Absolute Lymphocytes 1.09 L Absolute Monocytes 0.56 Absolute Eosinophils 0.18 Absolute Basophils 0.02 PT INR APTT D-Dimer Sodium Potassium Chloride Carbon Dioxide Anion Gap BUN Creatinine Estimated GFR/1.73 m2 Glucose Calcium Magnesium Iron TIBC Transferrin % Sat Total Bilirubin AST ALT Alkaline Phosphatase Troponin I NT-Pro-B Natriuret Pep Total Protein Albumin Urine Color Urine Clarity Urine pH Ur Specific [place] Urine Protein Urine Ketones Urine Blood Urine Nitrite Urine Bilirubin Urine Urobilinogen Ur Leukocyte Esterase Urine Glucose COVID-19 Source SARS-CoV-2 (PCR) Patient ABO/Rh O Positive Antibody Screen NEGATIVE
--- NOTE | 2021-08-30 11:07 | W.PM.PROGNOT ---
Date of Service Date of service: 08/30/21 Time of Service: 11:08 Assessment and Plan Assessment and plan (1) Iron deficiency anemia secondary to blood loss (chronic): Status: Acute Assessment and plan: Patient has a history of chronic iron deficiency anemia going back couple of years. He has been on oral iron supplementation with constipation as a side effect. His anemia has gotten to the point where he is having exertional dyspnea and lightheadedness. He presented with minimally elevated troponin I levels and no acute ischemic EKG changes. Is felt that his troponin I level was secondary to anemia induced coronary ischemia. He has known coronary artery disease with previous coronary artery bypass graft. I do not feel that he has had a primary ACS event and that his minimal troponin leak should not preclude him from having an EGD and colonoscopy to evaluate the source of his GI bleeding. I contacted Dr. Kaba to discuss his case and she indicated that anesthesia would not consent to him undergoing an EGD in light of his positive troponin I levels. Anesthesia and surgery would like a cardiology consult. I spoke with Dr. Celsa Bowen, didactic program in dietetics director, regarding the patient's case and requested her consultation on this patient's case to clear him for the necessary endoscopy. In the interim I'm going to start him on Protonix and Carafate. (2) Dizziness: Status: Acute (3) Exertional dyspnea: Status: Acute Assessment and plan: His exertional dyspnea is of recent onset in the last few weeks. I think it just took getting to this degree of anemia before he became symptomatic. (4) Elevated troponin I level: Status: Acute Assessment and plan: Minimal troponin I leak brought on by anemia induced coronary ischemia. Troponin level peaked at 77 yesterday and is now declining down to 68. EKG demonstrates normal sinus rhythm with a right bundle branch block which is unchanged from his prior ECGs. Echocardiogram was done this morning and showed normal left ventricular size and function with ejection fraction of 60 to 65% with no wall motion abnormalities. Patient has a bioprosthetic aortic valve. I have asked Dr. Celsa Bowen to consult on the patient regarding safety of performing EGD in light of his cardiac condition. Subjective Subjective Interval history since last seen: Patient presented with exertional dyspnea but no chest pain.Patient has had a chronic iron deficiency anemia. His baseline hemoglobin last January was 12.5 g however last spring he was down to 9.2. He presented last night with a hemoglobin of 9.1 g along with exertional fatigue. Overnight his hemoglobin dropped to 8.0 g. I rechecked his hemoglobin later this morning and remained stable at 8.3 g. Stool for occult blood was ordered but no digital rectal exam was performed last night or this morning. Patient denies any nausea or vomiting or abdominal pain. He has never had an EGD. He has had a colonoscopy but has been a number of years since his last colonoscopy. He has not noticed any hematochezia and as far as melena he can tell since he is on oral iron supplementation and all of his stools look black. I talked with him about his anemia and because he has been intolerant of oral iron I suggested going on parenteral iron including venofer. I also talked about transfusion but he is not too keen about getting a blood transfusion if it can be avoided. We gave him a dose of Venofer 200 mg IV today. I talked with him about the need to have upper and lower endoscopy and that I would be consulting with Dr. Kaba. Exam Narrative Exam Narrative: Elderly white male lying in bed semisolid position alert and oriented person place time circumstance. HEENT is remarkable for pale conjunctiva pale mucous membranes. Lungs are clear to auscultation Heart is regular rate and rhythm Abdomen soft nontender nondistended normal bowel sounds no bruits no organomegaly. Rectal exam was performed he has normal sphincter tone no external hemorrhoids. No palpable internal hemorrhoids. Prostate is moderately large without nodularity. Prostate is nontender. There is some firm stool balls in the rectal vault beyond the reach of my finger I can just feel the tip of it from my index finger. I did obtain a smear of dark stool that looks like iron rather than melena. It did Hemoccult positive. Objective Last Vital Signs Temp 36.9 C 08/30/21 08:18 Pulse 65 08/30/21 08:18 Resp 18 08/30/21 08:18 BP 156/77 H 08/30/21 08:18 Pulse Ox 97 08/30/21 08:18 Laboratory Results - last 24 hr 08/29/21 08/29/21 08/29/21 14:45 14:45 14:45 WBC 8.09 RBC 2.98 L Hgb 9.1 L Hct 27.1 L MCV 90.9 MCH 30.5 MCHC 33.6 RDW 13.4 Plt Count 279 MPV 9.6 Reticulocyte % (Auto) Immature Gran % 0.4 Neutrophils % 78.5 Lymphocytes % 12.4 Monocytes % 7.5 Eosinophils % 1.0 Basophils % 0.2 Nucleated RBC % 0 Absolute Neutrophils 6.35 Absolute Lymphocytes 1.00 L Absolute Monocytes 0.61 Absolute Eosinophils 0.08 Absolute Basophils 0.02 PT 9.8 INR 1.0 APTT 21.7 D-Dimer 436 Sodium 137 Potassium 4.5 Chloride 102 Carbon Dioxide 22.8 Anion Gap 12.2 H BUN 33 H Creatinine 1.3 Estimated GFR/1.73 m2 53.82 Glucose 275 H Calcium 9.2 Magnesium 1.6 L Iron TIBC Transferrin % Sat Total Bilirubin 0.4 AST 14 L ALT 26 Alkaline Phosphatase 81 Troponin I 77 H* NT-Pro-B Natriuret Pep 145 Total Protein 7.2 Albumin 3.9 Urine Color Urine Clarity Urine pH Ur Specific [place] Urine Protein Urine Ketones Urine Blood Urine Nitrite Urine Bilirubin Urine Urobilinogen Ur Leukocyte Esterase Urine Glucose COVID-19 Source SARS-CoV-2 (PCR) Patient ABO/Rh Antibody Screen 08/29/21 08/29/21 08/29/21 14:57 15:15 17:38 WBC RBC Hgb Hct MCV MCH MCHC RDW Plt Count MPV Reticulocyte % (Auto) Immature Gran % Neutrophils % Lymphocytes % Monocytes % Eosinophils % Basophils % Nucleated RBC % Absolute Neutrophils Absolute Lymphocytes Absolute Monocytes Absolute Eosinophils Absolute Basophils PT INR APTT D-Dimer Sodium Potassium Chloride Carbon Dioxide Anion Gap BUN Creatinine Estimated GFR/1.73 m2 Glucose Calcium Magnesium Iron TIBC Transferrin % Sat Total Bilirubin AST ALT Alkaline Phosphatase Troponin I 70 H* NT-Pro-B Natriuret Pep Total Protein Albumin Urine Color Yellow Urine Clarity Clear Urine pH 5.5 Ur Specific [place] 1.025 Urine Protein Negative Urine Ketones Negative Urine Blood Negative Urine Nitrite Negative Urine Bilirubin Negative Urine Urobilinogen 0.2 Ur Leukocyte Esterase Negative Urine Glucose 500 H COVID-19 Source Nasal/Nares SARS-CoV-2 (PCR) Negative Patient ABO/Rh Antibody Screen 08/30/21 08/30/21 08/30/21 06:28 06:28 06:28 WBC RBC Hgb Hct MCV MCH MCHC RDW Plt Count MPV Reticulocyte % (Auto) 3.9 H Immature Gran % Neutrophils % Lymphocytes % Monocytes % Eosinophils % Basophils % Nucleated RBC % Absolute Neutrophils Absolute Lymphocytes Absolute Monocytes Absolute Eosinophils Absolute Basophils PT INR APTT D-Dimer Sodium 139 Potassium 4.3 Chloride 105 Carbon Dioxide 23.6 Anion Gap 10.4 BUN 26 H Creatinine 1.0 Estimated GFR/1.73 m2 >= 60.00 Glucose 181 H D Calcium 8.7 Magnesium 1.8 Iron 21 L TIBC 282 Transferrin % Sat 7 L Total Bilirubin AST ALT Alkaline Phosphatase Troponin I 68 H* NT-Pro-B Natriuret Pep Total Protein Albumin Urine Color Urine Clarity Urine pH Ur Specific [place] Urine Protein Urine Ketones Urine Blood Urine Nitrite Urine Bilirubin Urine Urobilinogen Ur Leukocyte Esterase Urine Glucose COVID-19 Source SARS-CoV-2 (PCR) Patient ABO/Rh Antibody Screen 08/30/21 08/30/21 06:28 07:55 WBC 6.18 RBC 2.69 L Hgb 8.0 L Hct 23.9 L MCV 88.8 MCH 29.7 MCHC 33.5 RDW 13.5 Plt Count 263 MPV 9.7 Reticulocyte % (Auto) Immature Gran % 0.8 Neutrophils % 69.3 Lymphocytes % 17.6 Monocytes % 9.1 Eosinophils % 2.9 Basophils % 0.3 Nucleated RBC % 0 Absolute Neutrophils 4.28 Absolute Lymphocytes 1.09 L Absolute Monocytes 0.56 Absolute Eosinophils 0.18 Absolute Basophils 0.02 PT INR APTT D-Dimer Sodium Potassium Chloride Carbon Dioxide Anion Gap BUN Creatinine Estimated GFR/1.73 m2 Glucose Calcium Magnesium Iron TIBC Transferrin % Sat Total Bilirubin AST ALT Alkaline Phosphatase Troponin I NT-Pro-B Natriuret Pep Total Protein Albumin Urine Color Urine Clarity Urine pH Ur Specific [place] Urine Protein Urine Ketones Urine Blood Urine Nitrite Urine Bilirubin Urine Urobilinogen Ur Leukocyte Esterase Urine Glucose COVID-19 Source SARS-CoV-2 (PCR) Patient ABO/Rh O Positive Antibody Screen NEGATIVE
[2021-08-30 11:39] LABS: HCT 24.5 % (40.0-50.0); HGB 8.3 g/dL (13.5-17.5)
[2021-08-30] MEDS: Magnesium Citrate 300 ML BTL 150 ML PO (11:52)
[2021-08-30] MEDS: Bisacodyl 10 MG SUPP PR (11:52)
[2021-08-30] MEDS: Sucralfate 1 GM TAB PO (11:53)
[2021-08-30 12:07] VITALS: BP 131/71; PULSE 71; RESP 16; TEMP 36.5; O2SAT 99
[2021-08-30] MEDS: IRON SUCROSE COMPLEX 200 MG in Normal Saline 100 ML 400 MG IVPB (14:14)
[2021-08-30 15:18] VITALS: BP 109/69; PULSE 71; RESP 18; TEMP 36.7; O2SAT 98
--- NOTE | 2021-08-30 15:40 | W.CARDCONSUL ---
Date of service: 08/30/21 Time of Service: 15:40 Assessment and Plan Assessment and plan (1) Anemia: Status: Chronic Assessment and plan: The patient has iron deficiency anemia. He is being considered for both EGD and colonoscopy, which sounds appropriate (2) Atherosclerosis of [place] coronary artery: Status: Acute Assessment and plan: Patient has longstanding coronary artery disease. He does not describe any symptoms suggestive of angina. His troponins are borderline and not suggestive of an ongoing acute coronary syndrome . Overall I would consider him at average risk for low risk procedures such as EGD and colonoscopy. It would be acceptable to hold his aspirin and Plavix for prior to the procedure if necessary, resuming when procedures are complete This was discussed at the bedside with Dr. Kaba, by phone with Dr. Gordon Patient is agreeable to having the procedure performed in several days as an outpatient if arrangements can be made Thank you for the opportunity to precipitate in the care of this patient. Please do not hesitate to contact me if additional questions or concerns arise (3) History of aortic valve replacement with bioprosthetic valve: Status: Acute Assessment and plan: Appropriate valve function on recent echocardiogram (4) Hypertension: Status: Chronic Assessment and plan: Good blood pressure control on current medications History of Present Illness History of Present Illness Chief Complaint: Weakness Narrative: Cardiac evaluations and requested in this 76-year-old man who presented to the emergency room complaining of generalized weakness. Patient reported that he was out and generally began to feel poorly. He did not have any chest discomfort suggestive of his prior angina. He was not really short of breath. He sat down and rested and at that point decided to take a sublingual nitroglycerin. This made him feel worse. He felt like he had to get back to the house and did so. There his vital signs were checked and his blood pressure was within his normal range but his heart rate was about 90. At that point he and his decided to come to the emergency room ..there his laboratory studies disclosed mild anemia and a borderline elevated troponin. His electrocardiogram showed a right bundle branch block, which is his baseline. He was brought in for further evaluation. His troponins remained relatively flat. His EKGs were unchanged. An echocardiogram was performed which showed preserved/normal left ventricular systolic function and wall motion. His aortic bioprosthetic valve showed normal function, mean gradient was 11 The patient has an extensive and longstanding cardiac history. His last intervention was in March 2020 when he had coronary artery bypass grafting and aortic valve replacement. He has done well since that procedure without recurrent anginal symptoms. In fact he had not taken any nitroglycerin until his current presentation He has been taking iron intermittently for anemia. She received an iron infusion during this admission It is felt that he will require EGD and colonoscopy to ascertain the cause of anemia. Cardiac evaluation is requested in part to determine if he is stable for these procedures and to provide clearance to hold aspirin and clopidogrel Consults Consult date: 08/30/21 Requesting physician: Keo Romero Review of Systems Cardiovascular Cardiovascular: Denies chest pain, Denies rapid heart rate, Denies irregular heart rhythm, Denies leg edema, Denies radiating jaw, neck or arm pain, Denies palpitations, Denies dyspnea, Denies dyspnea on exertion and Denies slow heart rate Respiratory Respiratory: Denies dyspnea and Denies dyspnea on exertion Endocrine Endocrine: Denies palpitations PFSH All Active Problems History of aortic valve replacement with bioprosthetic valve (Acute) Neck pain (Acute) Anemia (Chronic) Dizziness (Acute) Tendonitis of left rotator cuff (Acute) Bradycardia (Acute) Dizziness (Acute) Right groin pain (Acute) Chronic insomnia (Acute) Dizziness (Acute) Glucosuria (Acute) UTI (urinary tract infection) (Acute) Congestion of respiratory tract (Acute) Chest pain (Acute) Shoulder pain, left (Acute) topical analgesics recommended Hypertension (Chronic) History of coronary angioplasty (Acute ~07/22/19) [place] [facility] [place] balloon angioplasty History of coronary artery bypass surgery (Acute) History of intravascular stent placement (Acute) History of left heart catheterization (Acute) Kidney symptom or sign (Acute) Bilateral impacted cerumen (Chronic) he is advised veggie oil drops in each canal a few times /week to help keep wax loose/soft also to turn head to shower to help keep canals clear Trigger finger, left little finger (Chronic) Neck pain (Acute) Rash (Acute) Tic disorder (Acute) Rupture of tendon of biceps, long head (Acute) right Pulmonary nodules (Acute 08/21/14) RLL benign old granulomas Pseudophakia (Acute 01/08/18) 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) Pleural effusion on right (Acute 11/05/16) Other and unspecified angina pectoris (Acute) Mild non proliferative diabetic retinopathy (Acute 10/09/13) OPTICAL EXPRESSIONS Low back pain (Acute) consider seeing chiropractor stretch daily Kidney stone (Acute) Injury of digital nerve (Acute) LEFT History of tobacco use (Acute) Heart murmur (Acute) Gout (Acute) Essential hypertension (Acute 04/23/13) Diabetes mellitus (Chronic 10/24/12) cut glipizide in half (5 mg twice/day) Corneal edema (Acute 01/08/18) Atherosclerosis of [place] coronary artery (Acute) CABG x 2 04/20; LEFT CATH 2001,2000, 2010; CORONARY ANGIOPLASTY 2009 stent 02/2018 neg stress echo 05/22 [facility] [place]p redo CABG X 2 03/2020 Anxiety (Acute 08/21/14) Age-related nuclear cataract of right eye (Acute 01/08/18) Medical History Anxiety 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 DM (diabetes mellitus screen) Essential hypertension Gout Heart murmur History of tobacco use Tic disorder Surgical History Angioplasty (~2008) LAD LEFT HEART CARDIAC CATH LEFT HEART CARDIAC CATH, 1993 >40% LAD RT/LEFT HEART CARD CATH, 2000 RCA stent placed LEFT HEART CARDIAC CATH, 2001 PROCEDURES 2 vessel coronary artery bypass 2012 S/P cardiac cath 07/22/19 [facility] [place] 2000-VASCULAR/RCA 09/21/17[place] [place] RCA (DISTAL EDGE OF PREVIOUS STENT) 02/2018- [facility] [place] MID RCA Social History Smoking/Tobacco Use Status: Former Tobacco Use tobacco type: cigarettes Quit Date: 08/13/93 Tobacco: How many years used: 25 Second Hand Exposure: Yes Smoking risk assessment performed?: Yes Alcohol Intake: current Alcohol Intake frequency: holidays/special occasions only Drug use: Never Substance use type: does not use Household members: spouse and children Communication Needs: Corrective Lenses Do you need help understanding health information?: Rarely Pets and animals: No Sexually active: Yes Do you think of yourself as: straight/heterosexual Current gender identity: male What is your relationship status?: How often do you talk on the phone with friends or family?: once per week Do you belong to any clubs or organized social groups?: no Panel score (0-1 are the most socially isolated patients): 1 What type of physical activity do you participate in: other Details: cardio Duration: < 15 minutes/day Frequency: daily Special kaur needs: No Agree to transfusion: No Seatbelt use: always Helmet use: No Drive intox or ride w/intox emergency detail driver: No Do you feel safe at home: Yes Do you feel safe in your relationship?: Yes Exam Narrative Exam Narrative: Well-developed well-nourished pale looks stated age Neck Other: No neck vein distention normal carotid upstrokes no bruits Cardio Other: Heart is regular brief systolic ejection quality murmur Skin Other: Pale warm and dry Results Last Vital Signs Temp 36.7 C 08/30/21 15:18 Pulse 71 08/30/21 15:18 Resp 18 08/30/21 15:18 BP 109/69 08/30/21 15:18 Pulse Ox 98 08/30/21 15:18 Labs Result diagrams: 08/30/21 11:30 08/30/21 06:28 Labs: Laboratory Results - last 24 hr 08/29/21 08/29/21 08/30/21 14:57 17:38 06:28 WBC RBC Hgb Hct MCV MCH MCHC RDW Plt Count MPV Reticulocyte % (Auto) Immature Gran % Neutrophils % Lymphocytes % Monocytes % Eosinophils % Basophils % Nucleated RBC % Absolute Neutrophils Absolute Lymphocytes Absolute Monocytes Absolute Eosinophils Absolute Basophils Sodium Potassium Chloride Carbon Dioxide Anion Gap BUN Creatinine Estimated GFR/1.73 m2 Glucose Calcium Magnesium Iron 21 L TIBC 282 Transferrin % Sat 7 L Troponin I 70 H* SARS-CoV-2 (PCR) Negative Patient ABO/Rh Antibody Screen 08/30/21 08/30/21 08/30/21 06:28 06:28 06:28 WBC 6.18 RBC 2.69 L Hgb 8.0 L Hct 23.9 L MCV 88.8 MCH 29.7 MCHC 33.5 RDW 13.5 Plt Count 263 MPV 9.7 Reticulocyte % (Auto) 3.9 H Immature Gran % 0.8 Neutrophils % 69.3 Lymphocytes % 17.6 Monocytes % 9.1 Eosinophils % 2.9 Basophils % 0.3 Nucleated RBC % 0 Absolute Neutrophils 4.28 Absolute Lymphocytes 1.09 L Absolute Monocytes 0.56 Absolute Eosinophils 0.18 Absolute Basophils 0.02 Sodium 139 Potassium 4.3 Chloride 105 Carbon Dioxide 23.6 Anion Gap 10.4 BUN 26 H Creatinine 1.0 Estimated GFR/1.73 m2 >= 60.00 Glucose 181 H D Calcium 8.7 Magnesium 1.8 Iron TIBC Transferrin % Sat Troponin I 68 H* SARS-CoV-2 (PCR) Patient ABO/Rh Antibody Screen 08/30/21 08/30/21 07:55 11:30 WBC RBC Hgb 8.3 L Hct 24.5 L MCV MCH MCHC RDW Plt Count MPV Reticulocyte % (Auto) Immature Gran % Neutrophils % Lymphocytes % Monocytes % Eosinophils % Basophils % Nucleated RBC % Absolute Neutrophils Absolute Lymphocytes Absolute Monocytes Absolute Eosinophils Absolute Basophils Sodium Potassium Chloride Carbon Dioxide Anion Gap BUN Creatinine Estimated GFR/1.73 m2 Glucose Calcium Magnesium Iron TIBC Transferrin % Sat Troponin I SARS-CoV-2 (PCR) Patient ABO/Rh O Positive Antibody Screen NEGATIVE
--- NOTE | 2021-08-30 16:19 | DSE_ITS ---
DS: Diagnosis Discharge Diagnosis (1) Anemia: Status: Chronic Asessment and Plan: Patient has a chronic iron deficiency anemia for which she receives oral iron supplements. Baseline hemoglobin in February 03, 2021 was 12.5 g. He presented with hemoglobin 9.1 g with symptomatic exertional dyspnea and lightheadedness. Overnight hemoglobin dropped to 8 g but when rechecked later in the day was found to be 8.3 g. Digital rectal exam was positive for occult blood. Patient declined to have a transfusion therefore he was given venofer 200 mg IV. Both surgical and cardiology consultation was obtained. See detailed report below. In summary cardiology cleared him for an EGD and colonoscopy. Patient was desiring to return home today but agreed to outpatient follow-up with Dr. Kaba for upper and lower endoscopy. Plan will be for upper endoscopy initi ally this Sunday, September 02, 2021. He will be n.p.o. on night September 01, 2021. He is instructed not to take any aspirin products or NSAIDs such as Motrin or ibuprofen or Naprosyn or Aleve. He is told to stop his aspirin and his clopidogrel and remain off of these until after his EGD. (2) Atherosclerosis of [place] coronary artery: Status: Chronic Asessment and Plan: Transient minimal troponin I elevation that is declining and not associated with any ischemic EKG or echocardiographic changes. These were felt to be secondary to anemia induced ischemia. (3) History of aortic valve replacement with bioprosthetic valve: Status: Chronic Asessment and Plan: Stable bioprosthetic aortic valve. (4) Hypertension: Status: Chronic Asessment and Plan: Stable essential hypertension. Continue home medications of lisinopril (5) Elevated troponin I level: Status: Resolved Asessment and Plan: As noted above minimal transient rise and elevated troponin I level secondary to anemia induced coronary ischemia. Echocardiogram showed no regional wall motion abnormalities and EKG showed no acute ischemic changes. (6) Exertional dyspnea: Status: Acute Asessment and Plan: Secondary to iron deficiency anemia. 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 He will receive another dose of venofer on Sunday when he presents for his EGD. (8) Diabetes mellitus: Status: Chronic Asessment and Plan: Patient should withhold his Metformin and glipizide and sitagliptin on the day of his procedure. Discharge Plan Disposition Patient Disposition: HOME Condition: Improving Discharge Details Reason For Visit: ANEMIA, DYSPNEA Admit Date/Time: 08/29/21 19:10 Admit Provider: Gallo Willard Attending Provider: Gallo Willard Primary Care Provider: Jon Ch Hospital Course Hospital Course: 76-year-old male with a history of coronary artery disease with previous cardiac stents as well as previous coronary bypass graft in bioprosthetic aortic valve replacement. Patient presented with progressive exertional dyspnea and fatigue but no chest pain or pressure. See admission H&P for details. Patient has known iron deficiency anemia and currently takes oral iron which is causing constipation issues. Evaluation demonstrated a hemoglobin of 9.1 g hematocrit 27% with normal red cell indices and normal white cell count and platelet count. Chemistry revealed an elevated BUN of 33 and a creatinine 1.3 and a low magnesium of 1.6 with normal LFTs and minimally elevated troponin I levels of 77 which then declined to 68. EKG showed sinus rhythm with right bundle branch block with no acute ischemic changes. Patient was admitted for evaluation of his dyspnea and anemia. Surgical consultation was requested with Dr. Kaba who evaluated the patient and initially indicated that anesthesia would not allow th e patient to have an EGD in the setting of elevated troponins. Therefore an echocardiogram was performed and a cardiology consultation was obtained with Dr. Celsa Bowen. See Dr. Bowen's consult note for details but in summary she felt that the patient had no symptoms referable to angina and had no ischemic changes on his EKG and furthermore his echocardiogram showed preserved left ventricular function with an ejection fraction of 60 to 65% with no wall motion abnormalities. Patient was found to have a bioprosthetic aortic valve with no aortic regurgitation. She indicated that it was reasonable for the patient undergo an EGD and a colonoscopy and that he was of average risk and that it was acceptable to withhold his Plavix and aspirin for the few days prior to his EGD and colonoscopy. Patient was given IV venofer for his iron deficiency. Iron levels were checked and found to be low with a serum iron of 21 and a transferrin saturation of 7%. Transfusion was discussed and offered to him mark antony the patient declined to have a transfusion therefore the venofer was given to try to build up his iron levels and stimulate erythropoiesis. Is a patient was having no symptoms of chest pain or tightness in his troponin levels were trending downward and his EKG and echocardiogram were not showing any new ischemic changes it was felt he can be safely discharged home with close follow- up with Dr. Kaba for an outpatient EGD and colonoscopy which she will arrange later this week. It is my understanding her plan is to initially start with the EGD for this Sunday he will be n.p.o. beginning night. He will have a follow-up labs on Sunday morning including another CBC. Although his Covid test was negative on admission and he is fully vaccinated we will obtain a rapid SARS-CoV-2 PCR test on the morning of his EGD. If his EGD shows no evidence for peptic ulcer disease then the plan will be to proceed with colonoscopy although in my opinion he should have a colonoscopy as he has not had one in several years. Patient is being discharged on Protonix and Carafate and has been told to hold his aspirin and clopidogrel until after his EGD. Home Meds and New Rx's Prescriptions: New pantoprazole [Protonix] 40 mg tablet,delayed release (DR/EC) 40 mg PO DAILY Qty: 30 0RF sucralfate [Carafate] 1 gram tablet 1 g PO QACHS Qty: 120 0RF Continued famotidine [Acid Multiple Launch Rocket System Crewmember (famotidine)] 20 mg tablet 20 mg PO DAILY 0RF acetaminophen 500 mg capsule 500 mg PO DAILY PRN0RF magnesium oxide 400 mg capsule 400 mg PO DAILY 0RF Label Comments: dose increase 11/28/18 MJS lisinopril 5 mg tablet 5 mg PO DAILY Qty: 90 1RF (DME) blood-glucose meter [Moonfruit Ultra2 Meter] 1 EACH kit 1 ea Miscellaneous DAILY Qty: 1 0RF nitroglycerin [Nitrostat] 0.4 mg tablet, sublingual 0.4 mg Sublingual PRN MDD 3 tabs Qty: 25 1RF Rx Instructions: take q 5 mins as needed; call MD if no relief after 3 atorvastatin 80 mg tablet 80 mg PO QHS 0RF (DME) lancets [[employer] Delica Lancets] 33 gauge misc 1 ea Miscellaneous BID Qty: 100 3RF Rx Instructions: test once/day (DME) blood sugar diagnostic Strip 1 strip Miscellaneous DAILY Qty: 100 3RF Rx Instructions: test once/day glipizide 5 mg tablet 5 mg PO BID Qty: 180 3RF Hold Instructions: Home Medication placed on hold at Doctor's office metformin 750 mg tablet extended release 24 hr 750 mg PO BID Qty: 180 3RF Januvia 50 mg tablet 50 mg PO DAILY Qty: 90 3RF No Action ferrous sulfate [Feosol] 325 mg (65 mg iron) tablet 325 mg PO DAILY 0RF aspirin [Aspir-81] 81 MG tablet,delayed release (DR/EC) 1 tab PO DAILY 0RF clopidogrel [Plavix] 75 MG tablet 1 tab PO DAILY Qty: 90 4RF Discharge Instructions Instructions: Iron Deficiency Anemia (GEN), Anemia (DC) Additional Instructions: stop your Plavix and aspirin from now through this Saturday 09/02 until after your upper endoscopy (EGD). You should present to [facility] outpatient surgery this Sunday morning for your EGD (esophagogastroduodenoscopy; upper endoscopy) with Dr. Kaba. Dr. Kaba's office will call you with directions. Do not eat or drink anything by mouth after midnight on night/Sunday morning. Do not take any non-steroidal anti-inflammatory medications between now and Sunday, such medications include naproxen sodium (Naprosyn or Aleve), ibuprofen (Motrin or Advil) nor any aspirin or aspirin products. You may take Tylenol (acetaminophen) as needed for pain. If you have any questions between now and your EGD, call Dr. Kaba's office. Please show up early on Sunday to have repeat blood count (CBC) drawn and to have a rapid Covid-19 test done. Stand Alone Forms: Nursing Discharge Form Referrals: Amanda Kaba DO [OSTEOPATHIC DOCTOR] - Jon Ch MD [Primary Care Provider] - (Please call the office to follow up) Activity:: Activity as Tolerated Equipment/Supplies:: No Equipment Needed Diet:: Normal Diet Discharge Orders Discharge Orders: Discharge Order (Routine); Ordered 08/30/21 Ordered By: Keo Romero Other Ambulatory Orders: Complete Blood Count w/Diff (Routine) Timeframe: 3 Days Facility: [facility] - Location: Laboratory Outpatient Ordered By: Keo Romero COVID-19 PCR Rapid ([facility]) (Stat) Timeframe: [id number] Facility: [facility] - Location: Laboratory Outpatient Ordered By: Keo Romero Discharge Data Discharge Date/Time-TO BE ENTERED AT DEPARTURE: 08/30/21 17:05 DS: Summary Time Spent with Patient providing and/or coordinating discharge services: Greater than 30 minutes Specific discharge activities: Rx, education, arrange follow up testing Status at Discharge Functional status at discharge: independent ambulation Overall status at discharge: patient is not back to baseline Mental Status: mental status grossly normal Speech and Movement: speech and movement normal Mood: congruent mood Affect: normal affect Exam Narrative Exam Narrative: Elderly white male lying in bed semisolid position alert and oriented person place time circumstance. HEENT is remarkable for pale conjunctiva pale mucous membranes. Lungs are clear to auscultation Heart is regular rate and rhythm Abdomen soft nontender nondistended normal bowel sounds no bruits no organomegaly. Rectal exam was performed he has normal sphincter tone no external hemorrhoids. No palpable internal hemorrhoids. Prostate is moderately large without nodularity. Prostate is nontender. There is some firm stool balls in the rectal vault beyond the reach of my finger I can just feel the tip of it from my index finger. I did obtain a smear of dark stool that looks like iron rather than melena. It did Hemoccult positive. Psych Mental Status: mental status grossly normal Speech and Movement: speech and movement normal Mood: congruent mood Affect: normal affect DS: Data Vitals/I&O Vitals and I&O: Vital Signs Temperature 36.7 C 08/30/21 15:18 Temperature Source Tympanic 08/30/21 15:18 Pulse 71 08/30/21 15:18 Pulse Rhythm Regular 08/30/21 14:45 Pulse 58 L 08/29/21 19:46 Respiratory Rate 18 08/30/21 15:18 Respiratory Effort 08/30/21 14:45 Respiratory Depth Normal 08/30/21 14:45 Respiratory Pattern Normal 08/30/21 14:45 Blood Pressure 109/69 08/30/21 15:18 Blood Pressure Mean 79 08/29/21 19:46 Blood Pressure Position Supine 08/29/21 14:28 Pulse Oximetry 98 08/30/21 15:18 Oxygen Delivery Method Room Air 08/30/21 15:18 Oxygen Flow Rate 0 08/30/21 15:18 Pain Level 0 08/30/21 15:18 Intake & Output 08/29/21 08/30/21 08/30/21 23:59 11:59 23:59 Intake Total 1190 / 1190 480 / 720 240 / 720 Output Total 1150 / 1150 1200 / 1700 500 / 1700 Balance 40 / 40 -720 / -980 -260 / -980 Weight 81.647 kg Intake: IV 110 / 110 Oral 1080 / 1080 480 / 720 240 / 720 Output: Urine 1150 / 1150 1200 / 1700 500 / 1700 Other: Urine Color Yellow Yellow Yellow Urine Appearance Clear Clear Clear Urine Odor None Comment per patient voidedf in toilet Stool Occult Blood Positive Stool Size Large Stool Characteristics Soft Formed Voiding Methods Toilet Toilet Data Completed and Pending Labs on day of discharge: Labs from last 24 hours 08/30/21 08/30/21 08/30/21 11:30 07:55 06:28 WBC 6.18 RBC 2.69 L Hgb 8.3 L 8.0 L Hct 24.5 L 23.9 L MCV 88.8 MCH 29.7 MCHC 33.5 RDW 13.5 Plt Count 263 MPV 9.7 Reticulocyte % (Auto) Immature Gran % 0.8 Neutrophils % 69.3 Lymphocytes % 17.6 Monocytes % 9.1 Eosinophils % 2.9 Basophils % 0.3 Nucleated RBC % 0 Absolute Neutrophils 4.28 Absolute Lymphocytes 1.09 L Absolute Monocytes 0.56 Absolute Eosinophils 0.18 Absolute Basophils 0.02 Sodium Potassium Chloride Carbon Dioxide Anion Gap BUN Creatinine Estimated GFR/1.73 m2 Glucose Calcium Magnesium Iron TIBC Transferrin % Sat Troponin I SARS-CoV-2 (PCR) Patient ABO/Rh O Positive Antibody Screen NEGATIVE 08/30/21 08/30/21 08/30/21 06:28 06:28 06:28 WBC RBC Hgb Hct MCV MCH MCHC RDW Plt Count MPV Reticulocyte % (Auto) 3.9 H Immature Gran % Neutrophils % Lymphocytes % Monocytes % Eosinophils % Basophils % Nucleated RBC % Absolute Neutrophils Absolute Lymphocytes Absolute Monocytes Absolute Eosinophils Absolute Basophils Sodium 139 Potassium 4.3 Chloride 105 Carbon Dioxide 23.6 Anion Gap 10.4 BUN 26 H Creatinine 1.0 Estimated GFR/1.73 m2 >= 60.00 Glucose 181 H D Calcium 8.7 Magnesium 1.8 Iron 21 L TIBC 282 Transferrin % Sat 7 L Troponin I 68 H* SARS-CoV-2 (PCR) Patient ABO/Rh Antibody Screen 08/29/21 08/29/21 17:38 14:57 WBC RBC Hgb Hct MCV MCH MCHC RDW Plt Count MPV Reticulocyte % (Auto) Immature Gran % Neutrophils % Lymphocytes % Monocytes % Eosinophils % Basophils % Nucleated RBC % Absolute Neutrophils Absolute Lymphocytes Absolute Monocytes Absolute Eosinophils Absolute Basophils Sodium Potassium Chloride Carbon Dioxide Anion Gap BUN Creatinine Estimated GFR/1.73 m2 Glucose Calcium Magnesium Iron TIBC Transferrin % Sat Troponin I 70 H* SARS-CoV-2 (PCR) Negative Patient ABO/Rh Antibody Screen [facility] All Active Problems (Updated 08/30/21 @ 18:57 by Keo Romero) Exertional dyspnea (Acute) 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 aortic valve replacement with bioprosthetic valve (Chronic) Neck pain (Acute) Anemia (Chronic) Dizziness (Acute) Tendonitis of left rotator cuff (Acute) Bradycardia (Acute) Dizziness (Acute) Right groin pain (Acute) Chronic insomnia (Acute) Dizziness (Acute) Glucosuria (Acute) Congestion of respiratory tract (Acute) Chest pain (Acute) Shoulder pain, left (Acute) topical analgesics recommended Hypertension (Chronic) History of coronary angioplasty (Acute ~07/22/19) [place] [facility] balloon [place] History of coronary artery bypass surgery (Acute) History of intravascular stent placement (Acute) History of left heart catheterization (Acute) Kidney symptom or sign (Acute) Bilateral impacted cerumen (Chronic) he is advised veggie oil drops in each canal a few times /week to help keep wax loose/soft also to turn head to shower to help keep canals clear Trigger finger, left little finger (Chronic) Neck pain (Acute) Rash (Acute) Tic disorder (Acute) Rupture of tendon of biceps, long head (Acute) right Pulmonary nodules (Acute 08/21/14) RLL benign old granulomas Pseudophakia (Acute 01/08/18) 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) Pleural effusion on right (Acute 11/05/16) Other and unspecified angina pectoris (Acute) Mild non proliferative diabetic retinopathy (Acute 10/09/13) OPTICAL EXPRESSIONS Low back pain (Acute) consider seeing chiropractor stretch daily Kidney stone (Acute) Injury of digital nerve (Acute) LEFT History of tobacco use (Acute) Heart murmur (Acute) Gout (Acute) Essential hypertension (Acute 04/23/13) Diabetes mellitus (Chronic 10/24/12) cut glipizide in half (5 mg twice/day) Corneal edema (Acute 01/08/18) Atherosclerosis of [place] coronary artery (Chronic) CABG x 2 04/20; LEFT CATH 2001,2000, 2010; CORONARY ANGIOPLASTY 2009 stent 02/2018 neg stress echo 05/22 [facility] [place]/p redo CABG X 2 03/2020 Anxiety (Acute 08/21/14) Age-related nuclear cataract of right eye (Acute 01/08/18) Medical History Anxiety Atherosclerosis of [place] coronary 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 DM (diabetes mellitus screen) Essential hypertension Gout Heart murmur History of tobacco use Tic disorder Surgical History Angioplasty (~2008) LAD LEFT HEART CARDIAC CATH LEFT HEART CARDIAC CATH, 1993 >40% LAD RT/LEFT HEART CARD CATH, 2000 RCA stent placed LEFT HEART CARDIAC CATH, 2001 PROCEDURES 2 vessel coronary artery bypass 2012 S/P cardiac cath [place]22[place] [facility] [place] 2000-VASCULAR/RCA 09/21/17[place] [place] RCA (DISTAL EDGE OF PREVIOUS STENT) 02/2018- [facility] [place] MID RCA Social History Smoking/Tobacco Use Status: Former Tobacco Use tobacco type: cigarettes Quit Date: 08/13/93 Tobacco: How many years used: 25 Second Hand Exposure: Yes Smoking risk assessment performed?: Yes Alcohol Intake: current Alcohol Intake frequency: holidays/special occasions only Drug use: Never Substance use type: does not use Household members: spouse and children Communication Needs: Corrective Lenses Do you need help understanding health information?: Rarely Pets and animals: No Sexually active: Yes Do you think of yourself as: straight/heterosexual Current gender identity: male What is your relationship status?: How often do you talk on the phone with friends or family?: once per week Do you belong to any clubs or organized social groups?: no Panel score (0-1 are the most socially isolated patients): 1 What type of physical activity do you participate in: other Details: cardio Duration: < 15 minutes/day Frequency: daily Special kaur needs: No Agree to transfusion: No Seatbelt use: always Helmet use: No Drive intox or ride w/intox wrecker driver: No Do you feel safe at home: Yes Do you feel safe in your relationship?: Yes
--- NOTE | 2021-08-30 17:05 | PDOC.CMDIS ---
- If Service Date Differs Date of service: 08/30/21 Time of Service: 17:05 LACE Index Scoring Tool - Questions: Length of Stay (in days): 1 Acuity (Admit via E.D.?): Yes Comorbidities: Diabetes w/o Complication E.D. Visits: 1 - Answers: Total Score: 6 Risk of Readmission: Low Risk Care Management Discharge Reason for Hospitalization: Anemia Discharge Plan: Manny will likely be discharged home with no new services. He will follow up with community providers and plan of care and transport with family. Patient/Family Education Needs: Review of discharge instructions, limitations, follow up plan, activity and discuss Ask Me Three
== END 2021-08-30 17:05 | disposition home or self-care (01) | DRG 812 ==
LOC: ER 19:17 → MS 19:53
PROVIDERS: Internal Medicine; Physician Assistant; Admitting Provider Family Medicine; Emergency Provider Physician Assistant; PCP Family Medicine; Visit Provider Family Medicine
DX: D50.0 Iron deficiency anemia secondary to blood loss (chronic) (principal); I24.8 Other forms of acute ischemic heart disease; I25.10 Atherosclerotic heart disease of native coronary artery without angina pectoris; Z95.4 Presence of other heart-valve replacement; I10 Essential (primary) hypertension; R53.1 Weakness; Z95.5 Presence of coronary angioplasty implant and graft; Z95.1 Presence of aortocoronary bypass graft; M54.50 Low back pain, unspecified; Z87.891 Personal history of nicotine dependence; E11.9 Type 2 diabetes mellitus without complications; Z79.84 Long term (current) use of oral hypoglycemic drugs; F41.9 Anxiety disorder, unspecified; M10.9 Gout, unspecified
CPT/HCPCS: 36415; 80048; 80053; 86850; 86900; 86901; 87635; 93005; 93306; 96365; 99222; 99285; 71046; 81003; 83540; 83550; 83735; 83880; 84484; 85014; 85018; 85025; 85045; 85379; 85610; 85730; 93010; J1756; J3475

== ENCOUNTER → 2021-08-30 13:19 | Outpatient (BNVA) | payer MEDICARE, BC, SELFPAY | PROVIDERS: PCP Family Medicine; Referring Provider Family Medicine; Visit Provider Internal Medicine Cardiovascular Disease | DX: R69 Illness, unspecified (principal) ==

== ENCOUNTER 2021-09-02 12:13 | Day surgery (SDC) | payer MEDICARE, BC, SELFPAY ==
--- NOTE | 2021-09-01 22:21 | ENDO_ITS ---
Date of service: 09/02/21 Endoscopy Report DATE OF PROCEDURE: 09/02/21 PRE-OP DIAGNOSIS: anemia POST-OP DIAGNOSIS: other (Hiatal hernia) SURGEON: Amanda Kaba ANESTHESIA TYPE: General:No Airway PATHOLOGY: other COMPLICATIONS: None DISPOSITION: same day PROCEDURE DESCRIPTION: After informed consent was obtained the patient was take to the procedure room and placed in a supine position. Monitors were applied and a time out was done. The patients name, date of , procedure type, allergies to medications and m etal in their body was reviewed. A bite block was placed and the patient was sedated. Once sedated and comfortable the gastroscope was advanced through the oropharynx which was grossly normal into the esophagus. The proximal and mid- esophagus were nl. In the distal esophagus there was no esophageal erosions, varices, diverticula or stricture visualized today. He has a very minor hiatal hernia. no: The scope was advanced into the stomach and through the pylorus into the 3rd portion of the duodenum. The duodenum was noted to be normal. Biopsies were done all specimens are retrieved and no bleeding is noted. The scope was retracted back into the stomach and biopsies were done to rule out H. pylori. There were no ulcers or gastritis . The scope was retroflexed. The cardia and fundus were noted to be normal. There very small hiatal hernia noted. The scope was retracted back into the esophagus and biopsies were done of the GE junction to rule out Otero's. The Z line was regular. The GE junction was at 38 cm. The scope was removed and the patient was woken up and taken back to [facility] in stable condition.
--- NOTE | 2021-09-01 22:23 | W.PM.DSUDISC ---
Discharge Plan Disposition Patient Disposition: HOME Condition: Good Discharge Details Reason For Visit: stomach scope Attending Provider: Amanda Kaba Primary Care Provider: Jon Ch Home Meds and New Rx's Prescriptions: No Action famotidine [Acid Staff [employer] Officer (famotidine)] 20 mg tablet 20 mg PO DAILY 0RF acetaminophen 500 mg capsule 500 mg PO DAILY PRN0RF magnesium oxide 400 mg capsule 400 mg PO DAILY 0RF Label Comments: dose increase 11/28/18 [facility] ferrous sulfate [Feosol] 325 mg (65 mg iron) tablet 325 mg PO DAILY 0RF lisinopril 5 mg tablet 5 mg PO DAILY Qty: 90 1RF aspirin [Aspir-81] 81 MG tablet,delayed release (DR/EC) 1 tab PO DAILY 0RF clopidogrel [Plavix] 75 MG tablet 1 tab PO DAILY Qty: 90 4RF (DME) blood-glucose meter [Trover Ultra2 Meter] 1 EACH kit 1 ea Miscellaneous DAILY Qty: 1 0RF nitroglycerin [Nitrostat] 0.4 mg tablet, sublingual 0.4 mg Sublingual PRN MDD 3 tabs Qty: 25 1RF Rx Instructions: take q 5 mins as needed; call MD if no relief after 3 atorvastatin 80 mg tablet 80 mg PO QHS 0RF (DME) lancets [MozioTouch Delica Lancets] 33 gauge misc 1 ea Miscellaneous BID Qty: 100 3RF Rx Instructions: test once/day (DME) blood sugar diagnostic Strip 1 strip Miscellaneous DAILY Qty: 100 3RF Rx Instructions: test once/day glipizide 5 mg tablet 5 mg PO BID Qty: 180 3RF Hold Instructions: Home Medication placed on hold at Doctor's office metformin 750 mg tablet extended release 24 hr 750 mg PO BID Qty: 180 3RF Januvia 50 mg tablet 50 mg PO DAILY Qty: 90 3RF pantoprazole [Protonix] 40 mg tablet,delayed release (DR/EC) 40 mg PO DAILY Qty: 30 0RF sucralfate [Carafate] 1 gram tablet 1 g PO QACHS Qty: 120 0RF Discharge Instructions Additional Instructions: Post EGD Instruction ? ?You had anesthesia for your EGD/stomach scope today.? For your safety, please do the following for the next twenty-four (24) hours: Do Not operate a motor vehicle (car, truck, motorcycle, etc.) Do Not drink alcoholic beverages or use any recreational drugs for the first 24 hours or while taking pain medications. The medications in your body may have a reaction that can be dangerous. Do Not make any important decisions or sign any important papers ? You have just had a gastroscopy (EGD) or upper GI tract examination. It is important for your smooth recovery that you carefully follow the recommendations below. Do not hesitate to call if any questions should arise about your anesthesia, condition, or care. -Symptoms you may experience during the next 24 hours: ?1. Mild abdominal pain or excessive gas or a bloated feeling which improves with rest, liquids, eating? slightly, and walking as tolerated. 2. Drowsiness and/or forgetfulness because of the medications you were given. ?3. Throat numbness for about 1 hour. 4. A sore throat which you can treat with throat lozenges or by gargling with salt water 4-5 times a day. 5. Redness at the site of your IV which you can treat with warm compresses. ? SPECIAL INSTRUCTIONS: 1. You may resume your previous diet in one hour. We recommend a light meal to start, then progress as tolerated. 2. Restart regular medications in one hour. 3. No aspirin or non-steroidal containing medication for three days. Resume asa and plavix on Sunday 4. No lifting over 20 pounds or strenuous activity for the first 24 hours after your procedure. After 24 hours there are no restrictions on your activity, but you may feel fatigued for a few days. ?-stop pepcid and carafate -continue Protonix Findings:very small hiatal hernia otherwise normal -Continue to follow lifestyle modifications: No alcohol, tobacco products, Aspirin or NSAID's (ibuprofen, Motrin, Naprosyn, aleve, etc).? Try to limit/avoid:? soda pop/any carbonated beverages, caffeine (including tea & chocolate), and acidic foods, (tomatoes, citrus, onions, peppermints) spicy or fried/fatty foods. Do not lie down for 30 minutes after eating, and do not eat 2 hours prior to bedtime. Avoid wearing tight fitting clothing/ belts. Follow up:Dr. Kaba in 2-3 wks -My office will send a letter with the results of your biopsy?s in 2-3wks time. ?Call the office at [phone] (Office) or [phone] (Hospital), or go to the ER right away if you notice any of the followin. Vomiting blood and /or ?coffee ground? material. ?2. Worsening of abdominal pain or cramping. ?3. Trouble with breathing, cough, and/or fever (temperature above 101.5 F). 4. Increasing pain with swallowing. ?5. Chest pain. 6. Any new symptoms. 7. Worsening of the redness at the IV site ? Activity:: see above Diet:: see above Discharge Orders Discharge Orders: Discharge Order (Routine); Ordered 09/01/21 Ordered By: Amanda Kaba
[2021-09-02 12:33] VITALS: BP 171/83; PULSE 92; RESP 18; TEMP 36; O2SAT 99
--- NOTE | 2021-09-02 12:42 | W.ANESPRE ---
General Info Date of Service Date Performed: 09/02/21 Height: 5 ft 8 in Weight: 82.8 kg Body Mass Index (BMI): 27.7 Surgical Procedure: Operation Date: 09/02/21 12:05 Proposed Procedure Side Surgeon p Gastroscopy Amanda Kaba, Meds Allergies and Home Medications Allergies Allergy/AdvReac Type Severity Reaction Status Date / Time ciprofloxacin AdvReac Intermediate Verified 08/31/21 14:41 ranolazine [From Ranexa] AdvReac Intermediate Agitation Verified 08/31/21 14:41 Home Medication Medication Instructions Recorded aspirin 81 mg tablet,delayed 1 tab PO DAILY 09/26/13 release (Aspir-) clopidogrel 75 mg tablet (Plavix) 1 tab PO DAILY #90 tab 12/18/13 blood-glucose meter (BitDefenderuch #1 kit 08/25/14 Ultra2 Meter) nitroglycerin 0.4 mg sublingual 0.4 mg SUBLINGUAL PRN #25 tab MDD 06/25/18 tablet (Nitrostat) 3 tabs magnesium oxide 400 mg PO DAILY cap 11/28/18 atorvastatin 80 mg tablet 80 mg PO QHS 07/29/19 lancets 33 gauge (OneTouch Delica #100 each 06/23/20 Lancets) acetaminophen 500 mg capsule 500 mg PO DAILY PRN cap 08/18/20 famotidine 20 mg tablet (Acid 20 mg PO DAILY 08/18/20 Cell Attendant Helper (famotidine)) blood sugar diagnostic #100 strip 11/05/20 ferrous sulfate 325 mg (65 mg 325 mg PO DAILY 11/24/20 iron) tablet (Feosol) glipizide 5 mg tablet 5 mg PO BID #180 tab 01/13/21 metformin 750 mg tablet,extended 750 mg PO BID #180 tab-cap 04/18/21 release 24 hr sitagliptin 50 mg tablet (Januvia) 50 mg PO DAILY #90 tab-cap 04/21/21 lisinopril 5 mg tablet 5 mg PO DAILY #90 tab 06/08/21 pantoprazole 40 mg tablet,delayed 40 mg PO DAILY #30 tab 08/30/21 release (Protonix) sucralfate 1 gram tablet (Carafate) 1 g PO QACHS #120 tab 08/30/21 Current Visit Medications: Current Medications Generic Name Dose Route Start Last Admin Trade Name Freq PRN Reason Stop Dose Admin Hyoscyamine Sulfate 0.125 mg 09/01/21 22:20 Hyoscyamine 0.125 Mg Sl/Oral/Chew SL DIRECTED PRN Ringer's Solution 1,000 mls @ 80 mls/hr 09/02/21 06:00 IV 10/01/21 23:59 INFUSION RJ Iron Sucrose 200 mg/ Sodium 110 mls @ 400 mls/hr 09/02/21 12:31 Chloride IVPB 09/02/21 12:47 DIRECTED ONE IV Miscellaneous Supplies 1 each 09/02/21 06:00 Iv Access IV 10/01/21 23:59 DIRECTED RJ Ondansetron HCl 4 mg 09/01/21 22:20 Ondansetron 4 Mg/2 Ml Vial IVP Q4H PRN PRN Nausea / Vomiting Sodium Chloride 0 ml 09/02/21 06:00 Normal Saline Flush 10 Ml Syr IV 10/01/21 23:59 PRN PRN Sodium Chloride 0 ml 09/02/21 06:00 Normal Saline 10 Ml Vial IJ 10/01/21 23:59 DIRECTED PRN Sterile Water 0 ml 09/02/21 06:00 Water,Injection,Sterile 10 Ml Vial IJ 10/01/21 23:59 DIRECTED PRN PFSH Active Problems Active Problems: Problem Status Onset Code Exertional dyspnea R06.00 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 bioprosthetic valve Z95.3 Neck pain M54.2 Anemia D64.9 Tendonitis of left rotator cuff M75.82 Bradycardia R00.1 Dizziness R42 Right groin pain R10.31 Chronic insomnia F51.04 Dizziness R42 Glucosuria R81 Congestion of respiratory tract J98.8 Chest pain R07.9 Shoulder pain, left M25.512 Hypertension I10 History of coronary angioplasty ~07/22/19 Z98.61 History of coronary artery bypass surgery Z95.1 History of intravascular stent placement Z95.828 History of left heart catheterization Z98.890 Kidney symptom or sign R39.89 Bilateral impacted cerumen H61.23 Trigger finger, left little finger M65.352 Neck pain M54.2 Rash R21 Tic disorder F95.9 Rupture of tendon of biceps, long head S46.119A Pulmonary nodules 08/21/14 R91.8 Pseudophakia 01/08/18 Z96.1 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 Pleural effusion on right 11/05/16 J90 Other and unspecified angina pectoris I20.9 Mild non proliferative diabetic retinopathy 10/09/13 E11.3299 Low back pain M54.5 Kidney stone N20.0 Injury of digital nerve History of tobacco use Z87.891 Heart murmur R01.1 Gout M10.9 Essential hypertension 04/23/13 I10 Diabetes mellitus 10/24/12 E11.9 Corneal edema 01/08/18 H18.20 Atherosclerosis of [place] coronary artery I25.10 Anxiety 08/21/14 F41.9 Age-related nuclear cataract of right eye 01/08/18 H25.11 Medical History Medical History Anxiety 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 DM (diabetes mellitus screen) Essential hypertension Gout Heart murmur History of tobacco use Tic disorder Surgical History Surgical History Angioplasty (~2008) LAD LEFT HEART CARDIAC CATH LEFT HEART CARDIAC CATH, 1993 >40% LAD RT/LEFT HEART CARD CATH, 2000 RCA stent placed LEFT HEART CARDIAC CATH, 2001 PROCEDURES 2 vessel coronary artery bypass 2012 S/P cardiac cath 07/22/19 [facility] [place] Stent placement 2000-VASCULAR/RCA 09/21/17-[facility] [place] MID RCA (DISTAL EDGE OF PREVIOUS STENT) 02/2018- [facility] [place] STENT MID RCA Tobacco Smoking/Tobacco Use Status: Former Tobacco Use Second hand exposure: Yes Alcohol Alcohol Intake: never Substance Use Substance use: Never Substance use type: does not use Vital Signs and Lab Results Vital Signs Most Recent Vital Signs in EMR: Most Recent Vital Signs Temp Pulse Resp BP Pulse Ox 36 C L 92 H 18 171/83 H 99 09/02/21 12:33 09/02/21 12:33 09/02/21 12:33 09/02/21 12:33 09/02/21 12:33 Lab Results Blood Type / Crossmatch: Patient ABO/Rh O Positive 08/30/21 Antibody Screen NEGATIVE 08/30/21 Complete Blood Count: White Blood Count 6.18 10^3/uL (4.4-10.8) 08/30/21 06:08/30/21 Red Blood Count 2.69 10^6/uL (4.36-5.78) L 08/30/21 06:28 08/30/21 Hemoglobin 8.3 g/dL (13.5-17.5) L 08/30/21 11:30 08/30/21 Hematocrit 24.5 % (40.0-50.0) L 08/30/21 11:30 08/30/21 Platelet Count 263 10^3/uL (130-400) 08/30/21 06:08/30/21 Complete Metabolic Panel: Sodium Level 139 mmol/L (136-145) 08/30/21 06:08/30/21 Potassium Level 4.3 mmol/L (3.5-5.1) 08/30/21 06:08/30/21 Chloride Level 105 mmol/L (98-107) 08/30/21 06:08/30/21 Carbon Dioxide Level 23.6 mmol/L (21.0-32.0) 08/30/21 06:28 08/30/21 Blood Urea Nitrogen 26 mg/dL (7-18) H 08/30/21 06:08/30/21 Creatinine 1.0 mg/dL (0.70-1.30) 08/30/21 06:08/30/21 Estimated GFR/1.73 m2 >= 60.00 (mL/min/1.73m2) 08/30/21 06:08/30/21 Magnesium Level 1.8 mg/dL (1.8-2.4) 08/30/21 06:08/30/21 Calcium Level 8.7 mg/dL (8.5-10.1) 08/30/21 06:08/30/21 Albumin 3.9 g/dL (3.4-5.0) 08/29/21 14:45 08/29/21 Glucose Level 181 mg/dL (74-106) H 08/30/21 06:28 08/30/21 Liver Function Panel: Alanine Aminotransferase (ALT/SGPT) 26 U/L (16-63) 08/29/21 14:45 08/29/21 Aspartate Amino Transf (AST/SGOT) 14 U/L (15-37) L 08/29/21 14:45 08/29/21 Coagulation Panel: INR International Normalized Ratio 1.0 (0.9-1.1) 08/29/21 14:45 08/29/21 Prothrombin Time 9.8 sec (9.3-11.0) 08/29/21 14:45 08/29/21 Activated Partial Thromboplast Time 21.7 sec (21.0-27.5) 08/29/21 14:45 08/29/21 D-Dimer 436 ng/mlFEU (<500) 08/29/21 14:45 08/29/21 Cardiac Panel: Troponin I 68 ng/L (<or=60) H* 08/30/21 AY-Pke-J-Type Natriuretic Peptide 145 pg/mL (<300) 08/29/21 Arterial Blood Gas: No Data to Display Venous Blood Gas: No Data to Display Pancreas Panel: No Data to Display Thyroid Panel: No Data to Display Infectious Disease: Coronavirus (COVID-19)(PCR) Negative (Negative) 08/29/21 14:57 08/29/21 Coronavirus 2019 Source Nasal/Nares 08/29/21 14:57 08/29/21 Blood Cultures: No Data to Display Toxicology Panel: No Data to Display Anesthesia Assessment and Plan Anesthesia History Personal History: No History of Anesthesia Complications Family History: No Family History of Anesthesia Complications Exercise Tolerance Exercise Tolerance: Metabolic Equivalents>4 Pertinent Negatives Pertinent Negatives: No Major Cardiovascular Symptoms or Complaints (CABG X 1 2012 / CABG X 2 Aortic Valve Replacement 2019, multiple caths), No Major Pulmonary Symptoms or Complaints and No History of CVA/TIA Cardiac & Pulmonary Exam Cardiac Exam: Normal S1/S2 Heart Sounds Pulmonary Exam: Clear Bilateral Breath Sounds Implantable Cardiac Device Does patient have a Pacemaker or an ICD?: No Airway Exam Known Difficult Airway: No Mallampati Class: 2 Mouth Opening: Normal (> 3cm) Thyromental Distance: Greater than 3 cm Neck Range of Motion: Full ROM Neck Circumference: Normal Teeth Condition: Removable Dentures/Plates Upper and Removable Dentures/Plates Lower ASA Classification ASA Score: ASA 3 Emergency Case?: No NPO Status NPO Status: NPO Clears >2 hours, Solids >8 hours Anesthesia Plan Resuscitation Status: Full Code Anesthesia Technique: General Anesthesia Airway Planned: Natural Airway Monitors Used: Standard Monitors
[2021-09-02 12:50] VITALS: BMI 27.7
[2021-09-02] MEDS: Lactated Ringers 1,000 ML 80 ML IV (12:53)
--- NOTE | 2021-09-02 13:20 | STOM_PTH ---
PATIENT: Manny Arnold LOC: [facility] U#:[id number] AGE/SX: 76/M ROOM: RE09/02/[address]: Amanda Kaba : 1945 BED: DIS: 09/02/2021 SPEC #: [id number] RECD: 09/02/21 15:21 STATUS: RONEY RE #: [id number] PRINCESS: 09/02/21 13:[address]: Amanda Kaba DEPT: Surgical Specimen RECD BY: Malissa Altman ENTERED: 09/02/21 15:22 SP TYPE: STOMACH OTHR DR: Jon Ch MD Tissues: 1 - BIOPSY BOWEL 2 - STOMACH BIOPSY 3 - ESOPHAGUS BIOPSY 4 - ESOPHAGUS BIOPSY Procedures: GROSS AND MICRO LEVEL 4 Comments: [id number]
[2021-09-02 13:35] VITALS: BP 113/59; PULSE 63; RESP 16; TEMP 36.4; O2SAT 95
--- NOTE | 2021-09-02 13:37 | W.ANESPOSTOP ---
Postoperative Evaluation Date, Time and Location Date Performed: 09/02/21 Time Performed: 13:37 Patient Location: Day Surgery Unit Vital Signs Most Recent Imported Vital Signs: Most Recent Vital Signs Temp Pulse Resp BP Pulse Ox 36 C L 92 H 18 171/83 H 99 09/02/21 12:33 09/02/21 12:33 09/02/21 12:33 09/02/21 12:33 09/02/21 12:33 Most Recent Manually Entered Vital Signs: Adult Blood Pressure: 113/59 Heart Rate: 66 Respirations: 12 Oxygen Saturation (%): 97 Temperature (C): 36.3 C Pain Score (0-10 Scale): 0 Pain Score Most Recent Pain Score: Most Recent Pain Score Pain Level 0 09/02/21 12:33 Assessment Mental Status: Awake (Alert & Oriented to Patient Baseline) Airway and Respiratory Function: Patent airway with normal (patient baseline) respiratory exam Cardiovascular Function: Hemodynamically Stable Hydration Status: Adequately Hydrated Nausea & Vomiting: No Nausea or Vomiting Pain: Pt. Denies Any Pain Peripheral Nerve Block: Patient did not receive a nerve block
[2021-09-02 13:38] VITALS: BP 113/59; PULSE 66; RESP 12; TEMPC 36.3; O2SAT 97
[2021-09-02 14:00] VITALS: BP 128/58; PULSE 62; RESP 16; TEMP 36; O2SAT 96
== END 2021-09-02 14:45 | disposition home or self-care (01) ==
LOC: SUR 12:13
PROVIDERS: PCP Family Medicine; Visit Provider Surgery
PROC: 0DJ68ZZ Inspection of Stomach, Via Natural or Artificial Opening Endoscopic (ICD-10-PCS; CPT 43235; principal; 2021-09-02 12:00)
DX: D64.9 Anemia, unspecified (principal); K44.9 Diaphragmatic hernia without obstruction or gangrene; E11.9 Type 2 diabetes mellitus without complications; I10 Essential (primary) hypertension; K31.89 Other diseases of stomach and duodenum
CPT/HCPCS: 43239; 88305; J2001

== ENCOUNTER → 2021-09-19 13:48 | Outpatient (BNVA) | payer MEDICARE, BC, SELFPAY | PROVIDERS: PCP Family Medicine; Referring Provider Family Medicine; Visit Provider Surgery | DX: Z48.815 Encounter for surgical aftercare following surgery on the digestive system (principal); D50.0 Iron deficiency anemia secondary to blood loss (chronic); E11.9 Type 2 diabetes mellitus without complications | CPT/HCPCS: 99213; 99242 ==

== ENCOUNTER 2021-09-23 00:54 | Outpatient (RCR) | payer MEDICARE, BC, SELFPAY ==
[2021-09-09] MEDS: Normal Saline Flush 10 ML SYR IVP (09:13)
[2021-09-09] MEDS: IRON SUCROSE COMPLEX 200 MG in Normal Saline 100 ML 440 MG IVPB (09:24)
[2021-09-16] MEDS: IRON SUCROSE COMPLEX 200 MG in Normal Saline 100 ML 440 MG IVPB (08:47)
[2021-09-16] MEDS: Normal Saline Flush 10 ML SYR IVP (08:48)
[2021-09-23 09:10] LABS: Abs Immature Grans 0.02 10^3/uL (0.0-0.06); Absolute Basophil Count 0.02 10^3/uL (0.0-0.2); Absolute Eosinophil Count 0.13 10^3/uL (0.0-0.7); Absolute Lymphocyte Count 0.93 10^3/uL (1.2-3.4); Absolute Monocyte Count 0.46 10^3/uL (0.1-0.8); Absolute Neutrophil Count 3.42 10^3/uL (1.2-6.7); Basophils % 0.4; Eosinophils % 2.6; HCT 29.6 % (40.0-50.0); HGB 9.4 g/dL (13.5-17.5); Immature Grans % 0.4; Lymphocytes % 18.7; MCH 28.8 pg (27.0-33.0); MCHC 31.8 % (32.0-36.0); MCV 90.8 fL (80-95); MPV 9.3 fL (8.0-11.0); Monocytes % 9.2; Neutrophils % 68.7; Nucleated RBC 0 %; Platelet Count 252 10^3/uL (130-400); RBC 3.26 10^6/uL (4.36-5.78); RDW 14.4 % (11.8-14.1); RDW-SD 47.3 fL; WBC 4.98 10^3/uL (4.4-10.8)
[2021-09-23] MEDS: Normal Saline Flush 10 ML SYR IVP (09:24)
[2021-09-23] MEDS: IRON SUCROSE COMPLEX 200 MG in Normal Saline 100 ML 440 MG IVPB (09:24)
[2021-09-23 09:37] LABS: Ferritin 107 ng/mL (26-388); TSH (W/Ref FT4) 0.99 uIU/mL (0.36-3.74)
[2021-09-23 10:26] LABS: Iron 27 ug/dL (65-175); Total Iron Binding Capacity 320 ug/dL (250-450); Transferrin Sat 8 % (20-55)
== END 2021-10-06 23:59 | disposition home or self-care (01) ==
LOC: INF 00:54
PROVIDERS: PCP Family Medicine; Visit Provider Surgery
DX: E11.9 Type 2 diabetes mellitus without complications (principal); I25.10 Atherosclerotic heart disease of native coronary artery without angina pectoris; Z09 Encounter for follow-up examination after completed treatment for conditions other than malignant neoplasm
CPT/HCPCS: 36415; 96365; 82728; 83540; 83550; 84443; 85025; J1756

== ENCOUNTER 2021-11-03 02:52 | Outpatient (CLI) | payer MEDICARE, BC, SELFPAY | END 2021-11-03 02:53 | disposition home or self-care (01) | LOC: LOS 02:53 | PROVIDERS: PCP Family Medicine; Visit Provider Family Medicine ==

== ENCOUNTER 2021-11-15 02:12 | Outpatient (CLI) | payer MEDICARE, BC, SELFPAY ==
[2021-11-15 12:30] LABS: HCT 41.5 % (40.0-50.0); HGB 13.4 g/dL (13.5-17.5); MCH 28.8 pg (27.0-33.0); MCHC 32.3 % (32.0-36.0); MCV 89 fL (80-95); Platelet Count 244 10^3/uL (130-400); RBC 4.66 10^6/uL (4.36-5.78); RDW 13.8 % (11.8-14.1); RDW-SD 45.1 fL; WBC 7.05 10^3/uL (4.4-10.8)
== END 2021-11-15 02:13 | disposition home or self-care (01) ==
LOC: LOS 02:12
PROVIDERS: PCP Family Medicine; Visit Provider Family Medicine
DX: R53.83 Other fatigue (principal)
CPT/HCPCS: 36415; 85027

== ENCOUNTER 2021-12-09 18:11 | Outpatient (REF) | payer MEDICARE, BC, SELFPAY ==
[2021-12-09 18:21] LABS: Estimated GFR 49.41 (mL/min/1.73m2)
[2021-12-09 18:28] LABS: CREATININE 1.4 mg/dL (0.70-1.30)
== END 2021-12-09 18:12 | disposition home or self-care (01) ==
LOC: LBO 18:11
PROVIDERS: PCP Family Medicine; Visit Provider Nurse Practitioner
DX: U07.1 COVID-19 (principal)
CPT/HCPCS: 82565

== ENCOUNTER 2022-02-16 01:33 | Outpatient (CLI) | payer MEDICARE, BC, SELFPAY ==
[2022-02-16 13:08] LABS: Iron 116 ug/dL (65-175)
== END 2022-02-16 01:34 | disposition home or self-care (01) ==
LOC: LOS 01:33
PROVIDERS: PCP Family Medicine; Visit Provider Family Medicine
DX: D64.9 Anemia, unspecified (principal)
CPT/HCPCS: 36415; 83540

== ENCOUNTER → 2022-03-20 01:25 | Outpatient (CLI) | payer MEDICARE, BC, SELFPAY ==
--- NOTE | 2022-03-20 07:30 | DI.RAD_ITS ---
Exam(s) XR CHEST 2V PA LATERAL EXAM: XR CHEST 2V PA LATERAL CLINICAL HISTORY: cough,R05.3. TECHNIQUE: 2D digital imaging was performed. COMPARISON: CR XR CHEST 2V PA LATERAL from 08/29/2021 FINDINGS: 2 views: Sternotomy wires again noted as well as a prosthetic aortic valve and left coronary artery stent. Heart size is normal. The mediastinum is not widened. Lungs are clear. No infiltrates nor pleural effusions. No pulmonary edema. No pneumothorax. IMPRESSION: No acute pulmonary findings.Cardiac findings as above. DATA REPOSITORY: RADIATION DOSE DELIVERED:
== END ==
PROVIDERS: PCP Family Medicine; Visit Provider Family Medicine
DX: R05.3 Chronic cough (principal); Z95.2 Presence of prosthetic heart valve
CPT/HCPCS: 71046

== ENCOUNTER 2022-08-25 00:56 | Outpatient (CLI) | payer MEDICARE, BC, SELFPAY ==
[2022-08-25 12:14] LABS: HCT 40.3 % (40.0-50.0); HGB 13.9 g/dL (13.5-17.5); MCH 31.2 pg (27.0-33.0); MCHC 34.5 % (32.0-36.0); MCV 91 fL (80-95); Platelet Count 221 10^3/uL (130-400); RBC 4.45 10^6/uL (4.36-5.78); RDW 11.4 % (11.8-14.1); RDW-SD 37.7 fL; WBC 6.71 10^3/uL (4.4-10.8)
[2022-08-25 12:35] LABS: Anion Gap 7.1 mmol/L (3-11); BUN 19 mg/dL (7-18); CO2 26.9 mmol/L (21.0-32.0); CREATININE 1.1 mg/dL (0.70-1.30); Calcium 9.6 mg/dL (8.5-10.1); Chloride 104 mmol/L (98-107); Estimated GFR 69.57 (mL/min/1.73m2); Glucose 196 mg/dL (74-106); Potassium 4.6 mmol/L (3.5-5.1); Sodium 138 mmol/L (136-145)
== END 2022-08-25 00:57 | disposition home or self-care (01) ==
LOC: LOS 00:56
PROVIDERS: PCP Family Medicine; Visit Provider Family Medicine
DX: E87.1 Hypo-osmolality and hyponatremia (principal); R53.83 Other fatigue
CPT/HCPCS: 36415; 80048; 85027

== ENCOUNTER 2022-11-22 03:07 | Outpatient (CLI) | payer MEDICARE, BC, SELFPAY ==
[2022-11-22 12:52] LABS: Iron 103 ug/dL (65-175)
[2022-11-22 13:05] LABS: Ferritin 61 ng/mL (26-388); Magnesium 1.5 mg/dL (1.8-2.4)
== END 2022-11-22 03:08 | disposition home or self-care (01) ==
LOC: LOS 03:07
PROVIDERS: PCP Family Medicine; Visit Provider Family Medicine
DX: D64.9 Anemia, unspecified (principal); E11.9 Type 2 diabetes mellitus without complications
CPT/HCPCS: 36415; 82728; 83540; 83735

== ENCOUNTER → 2023-06-01 00:20 | Outpatient (CLI) | payer MEDICARE, BC, SELFPAY ==
--- NOTE | 2023-06-01 10:08 | DI.RAD_ITS ---
Exam(s) XR CERVICAL SPINE COMP 4-5V EXAM: XR CERVICAL SPINE COMP 4-5V CLINICAL HISTORY: acute neck pain,M54.2. TECHNIQUE: 2D digital imaging was performed. Six images were obtained. AP, odontoid, lateral and stephanie ateral oblique images were obtained. COMPARISON: CR XR CERVICAL SPINE COMP 4-5V from 04/18/2021 FINDINGS: The odontoid is intact. The lateral masses are well aligned. There is normal alignment of the cervi juliann spine. There are mild degenerative changes seen in the cervical spine. No acute fracture or subl uxation is present. No significant neural foraminal stenosis is present. The cervical thoracic junct ion is well maintained. Vascular calcifications are seen in the soft tissues. Lung apices are clear. IMPRESSION: 1. Mild degenerative changes in the cervical spine. No neural foraminal stenosis. 2. Vascular calcifications. DATA REPOSITORY: RADIATION DOSE DELIVERED:
== END ==
PROVIDERS: PCP Family Medicine; Visit Provider Family Medicine
DX: M50.31 Other cervical disc degeneration, high cervical region (principal)
CPT/HCPCS: 72050

== ENCOUNTER 2023-06-03 17:57 | Emergency (ER) | payer MEDICARE, BC, SELFPAY ==
[2023-06-03 18:02] VITALS: BP 150/61; PULSE 69; RESP 18; TEMP 36.4; O2SAT 100
[2023-06-03] MEDS: Fluorescein STRIPS 100/BOX 1 MG OP (18:30)
[2023-06-03] MEDS: Tetracaine 0.5% 4 ML BTL OP (18:30)
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
== END 2023-06-03 18:45 | disposition home or self-care (01) ==
PROVIDERS: Emergency Provider Emergency Medicine; PCP Family Medicine
DX: H57.12 Ocular pain, left eye (principal); X03.0XXA Exposure to flames in controlled fire, not in building or structure, initial encounter; Y93.G2 Activity, grilling and smoking food
CPT/HCPCS: 99281; 99282

== ENCOUNTER 2023-12-13 05:20 | Outpatient (CLI) | payer MEDICARE, BC, SELFPAY ==
[2023-12-13 10:53] LABS: Abs Immature Grans 0.03 10^3/uL (0.0-0.06); Absolute Basophil Count 0.03 10^3/uL (0.0-0.2); Absolute Eosinophil Count 0.24 10^3/uL (0.0-0.7); Absolute Lymphocyte Count 1.11 10^3/uL (1.2-3.4); Absolute Monocyte Count 0.54 10^3/uL (0.1-0.8); Absolute Neutrophil Count 4.04 10^3/uL (1.2-6.7); Basophils % 0.5 %; HCT 37.9 % (40.0-50.0); HGB 13.2 g/dL (13.5-17.5); Immature Grans % 0.5 %; Lymphocytes % 18.5 %; MCH 31.3 pg (27.0-33.0); MCHC 34.8 % (32.0-36.0); MCV 90 fL (80-95); MPV 9.9 fL (8.0-11.0); Neutrophils % 67.5 %; Platelet Count 218 10^3/uL (130-400); RBC 4.22 10^6/uL (4.36-5.78); RDW 11.9 % (11.8-14.1); RDW-SD 38.7 fL; WBC 5.99 10^3/uL (4.4-10.8)
[2023-12-13 11:16] LABS: CREATININE 1.2 mg/dL (0.70-1.30); Calculated LDL 48 mg/dL (<100); Cholesterol 108 mg/dL (<200); Estimated GFR 62.29 (mL/min/1.73m2); HDL Cholesterol 48 mg/dL (40-60); Potassium 4.4 mmol/L (3.5-5.1); Triglyceride 64 mg/dL (<150)
== END 2023-12-13 05:21 | disposition home or self-care (01) ==
LOC: LOS 05:20
PROVIDERS: PCP Family Medicine; Visit Provider Family Medicine
DX: I10 Essential (primary) hypertension (principal); D64.9 Anemia, unspecified; E78.5 Hyperlipidemia, unspecified
CPT/HCPCS: 36415; 80061; 82565; 84132; 85025

== ENCOUNTER → 2024-02-02 09:54 | Outpatient (CLI) | payer MEDICARE, BC, SELFPAY ==
--- NOTE | 2024-02-02 10:19 | DI.RAD_ITS ---
Exam(s) XR ANKLE LT COMPLETE EXAM: XR ANKLE LT COMPLETE CLINICAL HISTORY: ankle pain, swelling. r/o lateral mallolous fractu TECHNIQUE: 2D digital imaging was performed of the left ankle. Three images were obtained. AP, lat eral and oblique views were obtained. COMPARISON: No exams were available for comparison FINDINGS: BONES: No acute fracture is present. No bony destructive lesion is seen. JOINTS:The ankle mortise is normally aligned. SOFT TISSUE: Vascular calcifications are present. Achilles tendon calcification is seen at its inser tion site. IMPRESSION: No acute fracture or dislocation. DATA REPOSITORY: RADIATION DOSE DELIVERED:
--- NOTE | 2024-02-02 10:39 | DI.VRAD_ITS ---
PROCEDURE INFORMATION: Exam: XR Left Ankle Exam date and time: 02/02/2024 10:16 AM Age: 78 years old Clinical indication: Ankle; Left; Patient HX: Pain no trauma TECHNIQUE: Imaging protocol: Radiologic exam of the left ankle. Views: 3 or more views. COMPARISON: No relevant prior studies available. FINDINGS: Bones/joints: Normal. No acute fracture or dislocation. Soft tissues: There is soft tissue swelling noted. IMPRESSION: No acute findings. Dictated and Authenticated by: Esther Ross MD. Ordering:GAMAL Mace MD
== END ==
PROVIDERS: PCP Family Medicine; Visit Provider Physician Assistant
DX: M25.572 Pain in left ankle and joints of left foot (principal)
CPT/HCPCS: 73610

== ENCOUNTER 2024-07-24 01:15 | Outpatient (CLI) | payer MEDICARE, BC, SELFPAY ==
[2024-07-24 12:44] LABS: Iron 98 ug/dL (65-175); Total Iron Binding Capacity 283 ug/dL (250-450); Transferrin Sat 35 % (20-55)
[2024-07-24 12:55] LABS: Ferritin 50 ng/mL (26-388); Magnesium 1.6 mg/dL (1.8-2.4)
== END 2024-07-24 01:16 | disposition home or self-care (01) ==
LOC: LOS 01:15
PROVIDERS: PCP Family Medicine; Visit Provider Family Medicine
DX: D64.9 Anemia, unspecified (principal); E83.42 Hypomagnesemia; D64.1 Secondary sideroblastic anemia due to disease
CPT/HCPCS: 36415; 82728; 83540; 83550; 83735

== ENCOUNTER 2024-08-05 11:19 | Outpatient (CLI) | payer MEDICARE, BC, SELFPAY ==
--- NOTE | 2024-08-05 11:15 | RT.EKG_ITS ---
APPROVED REPORT Exam: Resting ECG Reason for Exam: Chest discomfort Patient Location: O HR:42 bpm ECG Measurements Heart Rate 42 AXIS WA 210 P 74 QRSd 143 QRS -40 QT 479 T 69 QTc 401 Conclusion Sinus bradycardia...rate< 50 RBBB and LAFB...QRSd >120mS, axis(-40,240)
== END 2024-08-05 11:20 | disposition home or self-care (01) ==
LOC: DI.CM 11:19
PROVIDERS: PCP Family Medicine; Visit Provider Family Medicine
DX: R07.89 Other chest pain (principal)
CPT/HCPCS: 93010

== ENCOUNTER 2024-09-22 13:30 | Outpatient (CLI) | payer MEDICARE, BC, SELFPAY ==
--- NOTE | 2024-09-22 13:15 | DI.RAD_ITS ---
Exam(s) XR RIBS RT W PA LAT CHEST CLINICAL HISTORY: Right rib pain; contusion of rt front wall of thorax, S20.211A; unspecified. COMPARISON: CR XR CHEST 2V PA LATERAL from 03/20/2022 TECHNIQUE:: PA and lateral views of the chest and four views of the right ribs were performed. FINDINGS: LUNGS:Clear. No pleural abnormality seen. HEART: Normal. Aortic valve prosthesis. Coronary artery stents. MEDIASTINUM: Normal. BONES: No displaced rib fracture is seen. No bony destructive lesion is seen. Sternal wires. OTHER FINDINGS: None. IMPRESSION: 1. Unremarkable radiographic appearance of the right ribs. 2. No acute pulmonary findings.
== END 2024-09-22 13:50 ==
LOC: DI 13:31
PROVIDERS: PCP Family Medicine; Visit Provider Nurse Practitioner Family
DX: W19.XXXA Unspecified fall, initial encounter (principal); S20.211A Contusion of right front wall of thorax, initial encounter; R07.81 Pleurodynia
CPT/HCPCS: 71046; 71100

== ENCOUNTER 2024-12-25 11:23 | Outpatient (CLI) | payer MEDICARE, BC, SELFPAY ==
[2024-12-25 14:45] LABS: CREATININE 1.1 mg/dL (0.70-1.30); Estimated GFR 68.71 (mL/min/1.73m2); Potassium 4.8 mmol/L (3.5-5.1); Vitamin B12 313 pg/mL (193-986)
[2024-12-27 08:18] LABS: Lab Add On Test DONE
[2024-12-27 08:30] LABS: Magnesium 1.7 mg/dL (1.8-2.4)
== END 2024-12-25 11:24 | disposition home or self-care (01) ==
LOC: LOS 11:23
PROVIDERS: PCP Family Medicine; Referring Provider Family Medicine; Visit Provider Family Medicine
DX: D64.9 Anemia, unspecified (principal); R73.9 Hyperglycemia, unspecified; I10 Essential (primary) hypertension
CPT/HCPCS: 36415; 82565; 82607; 83036; 83735; 84132

== ENCOUNTER 2025-06-30 12:21 | Outpatient (CLI) | payer MEDICARE, BC, SELFPAY ==
[2025-06-30 16:14] LABS: HCT 39.0 % (40.0-50.0); HGB 13.2 g/dL (13.5-17.5); MCH 30.8 pg (27.0-33.0); MCHC 33.8 % (32.0-36.0); MCV 91 fL (80-95); MPV 10.0 fL (8.0-11.0); Platelet Count 233 10^3/uL (130-400); RBC 4.29 10^6/uL (4.36-5.78); RDW 12.0 % (11.8-14.1); RDW-SD 39.8 fL; WBC 6.48 10^3/uL (4.4-10.8)
[2025-06-30 16:28] LABS: Magnesium 1.8 mg/dL (1.6-2.6)
[2025-06-30 16:30] LABS: Vitamin B12 692 pg/mL (211-911)
== END 2025-06-30 12:22 | disposition home or self-care (01) ==
LOC: LOS 12:21
PROVIDERS: PCP Family Medicine; Visit Provider Family Medicine
DX: D64.9 Anemia, unspecified (principal); R53.83 Other fatigue; E83.42 Hypomagnesemia
CPT/HCPCS: 36415; 85027; 82607; 83735